=== PATIENT | female | born 1945 ===

== ENCOUNTER 2025-04-23 04:20 | Observation (INO) | payer MEDICARE, BC, SELFPAY ==
[2025-04-22 20:51] VITALS: BMI 36.8
[2025-04-22 20:53] VITALS: BP 152/73
--- NOTE | 2025-04-22 23:19 | ED.GENMED ---
History of Present Illness
<Connor Maza Jr., PA-C - Last Filed: 04/23/25 16:58>
General
Chief Complaint: Musculo-Skeletal Complaint
Source: patient
Exam Limitations: none
Time Seen by Provider: 04/22/25 21:36
Nursing documentation reviewed up to this point in time: agreed with
History of Present Illness
History of Present Illness:
79-year-old female presenting to the emergency department today with concerns of abrupt onset of left hip pain while walking pain specifically to the hip unable to walk since. No injury or specific trauma to the area no falls. Denies any redness
or warmth. Otherwise felt well immediately prior to this. Difficulty moving at the hip at this point.
Review of Systems
<Connor Maza Jr., PA-C - Last Filed: 04/23/25 16:58>
Review of Systems
Allergies reviewed?: Yes
All Other Systems: ROS reviewed and negative except as documented in HPI and ROS
Phy Exam
<DARRYL Ferrera Jr. Last Filed: 04/23/25 16:58>
Physical Exam
Physical Exam:
GENERAL: Alert , in no apparent distress
EYE: pupils equal and reactive
NECK: Supple, no significant adenopathy.
ENT: o/p clr, mmm.
CARDIAC: Regular rate and rhythm .
LUNGS: Clear breath sounds bilaterally, no acute respiratory distress, no wheezes/rales/rhonchi
ABDOMEN: Soft, without focal tenderness, no r/g, no cvat
NEUROLOGICAL: Alert and oriented, no focal neuro deficits
SKIN: Warm and dry, skin intact.
MUSCULOSKELETAL: Increased comfort of left hip with any movement of the hip including straight leg raise, no redness or warmth some mild discomfort when palpating the lateral aspect of the hip no edema, well perfused.
PSYCH: Normal and appropriate interaction.
Course
<Connor Maza Jr., PA-C - Last Filed: 04/23/25 16:58>
Orders/Labs/Results
Orders:
Orders
04/22/25 21:36
Hip, Left 2-3 Views [CR Hip - LT w/wo Pel 2-3 Vw*] Urgent
Comment:
Reason For Exam: left hip pain
Include a pelvis x-ray?: Yes
04/22/25 23:07
CT Pelvis W/o Iv Contrast Urgent
Comment:
Reason For Exam: left hip pain cannot weight bear
Ketorolac [Toradol] 30 mg IM NOW STA
04/23/25 00:41
Acetaminophen 1000MG/100Ml [Ofirmev] 1,000 mg in 100 ml IV ONCE
Acetaminophen IV Indication:: ED Narcotic Naive Pt-ONCE
04/23/25 00:53
Complete Blood Count/No Diff Urgent
Comprehensive Metabolic Panel Urgent
04/23/25 01:45
Oxycodone [Roxicodone] 5 mg PO NOW STA
04/23/25 03:00
Flush (0.9% Sodium Chloride) [Flush (Nss)] See Dose Instructions IV PER PROTOCOL
04/23/25 04:05
Admit/Transfer Patient As Directed
Co-Sign Provider:
Level of Care: Observation services
Assign to:: Medical/Surgical
Physician / Group: [facility]
Diagnosis: Hip Pain, Ambulatory Dysfunction
PRN Pain Medication Management As Directed
May give lesser potent ordered pain med per pt: Yes
preference::
Protocol:: Medication orders for pain may be administered in a
manner that supports deferring to patient preference
when the pt is:
- Requesting an ordered lesser potent pain medication.
Least to most potent pain medications are defined
as: acetaminophen < NSAID < tramadol < opioids
(morphine, oxycodone, hydromorphone).
- Requesting a lesser dose of the same medication IF
ORDERED.
- Requesting a less intrusive route of administration
if both routes are prescribed by the provider (PO <
IV).
04/23/25 04:06
Code Status As Directed
Resuscitation Status: Full Code
04/23/25 05:56
Naproxen [Naprosyn] 250 mg PO BID PRN Mild pain Mild pain
Zolpidem Tartrate [Ambien] 5 mg PO HS PRN insomnia
04/23/25 05:56
Activity As Directed
Activity Level: Ambulate
With Assistance
Heat Application As Directed
Apply heat therapy device to (location):: L hip / buttock
Device Frequency setting:: 20 minute cycles
Device temperature setting:: Moderate: 100 F (38 C)
I/O [Intake/ Output] As Directed
Frequency: Per unit guidelines
Vital Signs As Directed
Frequency: Per unit guidelines
PT Consult [Pt Eval And Treat] Routine
Activity Level: Ambulate
With Assistance
DX Deep Vein Thrombosis Video Routine
04/23/25 Breakfast
Regular
At Your Request: Full Participation
04/23/25 07:04
Basic Metabolic Panel IN AM
Complete Blood Count/No Diff IN AM
04/23/25 08:00
Acetaminophen [Tylenol] 1,000 mg PO TID
Triamterene/Hctz [Dyazide] 1 capsule PO DAILY
04/23/25 18:00
Enoxaparin Sodium [Lovenox] 40 mg SC QPM
Abnormal Lab Results
04/23/25
00:53
MCH 31.3 H pg
(27.0-31.0)
MPV 10.8 H fL
(7.4-10.4)
Chloride 108 H mmol/L
(98-107)
BUN 21 H mg/dl
(7-17)
Glucose 109 H mg/dl
(70-99)
04/23/25 00:53
04/23/25 00:53
Vital Signs
Initial and Last Documented VS:
Initial Vital Signs
Temp Pulse Resp BP Pulse Ox
98.2 F 79 18 152/73 95
04/22/25 20:53 04/22/25 20:53 04/22/25 20:53 04/22/25 20:53 04/22/25 20:53
Last Documented Vital Signs
Temp Pulse Resp BP Pulse Ox
98.4 F 68 16 124/59 95
04/23/25 15:05 04/23/25 15:05 04/23/25 15:05 04/23/25 15:05 04/23/25 15:05
<Thuan Lynne PA-C - Last Filed: 04/23/25 01:58>
Orders/Labs/Results
Orders:
Orders
04/22/25 21:36
Hip, Left 2-3 Views [CR Hip - LT w/wo Pel 2-3 Vw*] Urgent
Comment:
Reason For Exam: left hip pain
Include a pelvis x-ray?: Yes
04/22/25 23:07
CT Pelvis W/o Iv Contrast Urgent
Comment:
Reason For Exam: left hip pain cannot weight bear
Ketorolac [Toradol] 30 mg IM NOW STA
04/23/25 00:41
Acetaminophen 1000MG/100Ml [Ofirmev] 1,000 mg in 100 ml IV ONCE
Acetaminophen IV Indication:: ED Narcotic Naive Pt-ONCE
04/23/25 00:53
Complete Blood Count/No Diff Urgent
Comprehensive Metabolic Panel Urgent
04/23/25 01:45
Oxycodone [Roxicodone] 5 mg PO NOW STA
04/23/25 03:00
Flush (0.9% Sodium Chloride) [Flush (Nss)] See Dose Instructions IV PER PROTOCOL
04/23/25 04:05
Admit/Transfer Patient As Directed
Co-Sign Provider:
Level of Care: Observation services
Assign to:: Medical/Surgical
Physician / Group: [facility]
Diagnosis: Hip Pain, Ambulatory Dysfunction
PRN Pain Medication Management As Directed
May give lesser potent ordered pain med per pt: Yes
preference::
Protocol:: Medication orders for pain may be administered in a
manner that supports deferring to patient preference
when the pt is:
- Requesting an ordered lesser potent pain medication.
Least to most potent pain medications are defined
as: acetaminophen < NSAID < tramadol < opioids
(morphine, oxycodone, hydromorphone).
- Requesting a lesser dose of the same medication IF
ORDERED.
- Requesting a less intrusive route of administration
if both routes are prescribed by the provider (PO <
IV).
04/23/25 04:06
Code Status As Directed
Resuscitation Status: Full Code
04/23/25 05:56
Naproxen [Naprosyn] 250 mg PO BID PRN Mild pain Mild pain
Zolpidem Tartrate [Ambien] 5 mg PO HS PRN insomnia
04/23/25 05:56
Activity As Directed
Activity Level: Ambulate
With Assistance
Heat Application As Directed
Apply heat therapy device to (location):: L hip / buttock
Device Frequency setting:: 20 minute cycles
Device temperature setting:: Moderate: 100 F (38 C)
I/O [Intake/ Output] As Directed
Frequency: Per unit guidelines
Vital Signs As Directed
Frequency: Per unit guidelines
PT Consult [Pt Eval And Treat] Routine
Activity Level: Ambulate
With Assistance
DX Deep Vein Thrombosis Video Routine
04/23/25 Breakfast
Regular
At Your Request: Full Participation
04/23/25 07:04
Basic Metabolic Panel IN AM
Complete Blood Count/No Diff IN AM
04/23/25 08:00
Acetaminophen [Tylenol] 1,000 mg PO TID
Triamterene/Hctz [Dyazide] 1 capsule PO DAILY
04/23/25 18:00
Enoxaparin Sodium [Lovenox] 40 mg SC QPM
Abnormal Lab Results
04/23/25
00:53
MCH 31.3 H pg
(27.0-31.0)
MPV 10.8 H fL
(7.4-10.4)
Chloride 108 H mmol/L
(98-107)
BUN 21 H mg/dl
(7-17)
Glucose 109 H mg/dl
(70-99)
04/23/25 00:53
04/23/25 00:53
Vital Signs
Initial and Last Documented VS:
Initial Vital Signs
Temp Pulse Resp BP Pulse Ox
98.2 F 79 18 152/73 95
04/22/25 20:53 04/22/25 20:53 04/22/25 20:53 04/22/25 20:53 04/22/25 20:53
Last Documented Vital Signs
Temp Pulse Resp BP Pulse Ox
98.4 F 68 16 124/59 95
04/23/25 15:05 04/23/25 15:05 04/23/25 15:05 04/23/25 15:05 04/23/25 15:05
<Connor Maza Jr., PA-C - Last Filed: 04/23/25 16:58>
MDM/Problems Addressed
MDM/Problems Addressed:
79-year-old female presenting to the emergency department today with concerns of a sharp hip pain when walking earlier today. Difficulty walking since at this point unable to weight-bear secondary to pain. No specific trauma to the area. No
redness or warmth no signs of infection normal vital signs. X-ray without obvious fracture or acute abnormalities. Concerning the patient is unable to ambulate plan for CT scan for further assessment.
<Thuan Lynne PA-C - Last Filed: 04/23/25 01:58>
*Critical Care Note
Total Time (30-74mins, 75-104mins- exclusive of procedures): Not Applicable
<Thuan Lynne PA-C - Last Filed: 04/23/25 01:58>
Update Note
Update Note:
Assumed care of patient from Ed DARRYL Maza at shift change 0000. Patient awaiting CT scan for intractable left hip pain after minimal mechanical injury without fall. Initial x-ray was unremarkable. Ultimately CT reveals no acute osseous
abnormality. Patient was given analgesics and was able to bear weight however was unable to ambulate steadily. She does not feel comfortable returning home as per her is not strong enough to assist her with movement. Due to her advanced
age and body habitus will place in observation for PT and OT considerations as well as further pain management
ED Attending Note
<Connor Maza Jr., PA-C - Last Filed: 04/23/25 16:58>
-
Portions of this chart may have been created with voice recognition software.� Occasional wrong word or��sound alike� substitutions may have occurred due to the inherent limitations of voice recognition software.
Discharge Plan
Departure
Patient Disposition: Admit
Date of Disposition: 04/23/25
Time of Disposition: 01:56
Presentation/result/management discussed w/ accepting MD/DO: Hospitalist
Discharge Problem:
Acute pain of left hip, Ambulatory dysfunction
Interventions
Interventions:
*Risk Screen - Suicide Last Done: 04/23/25 06:04
*General Assessment Last Done: 04/22/25 21:12
*Neglect/Abuse Screening Last Done: 04/22/25 21:12
*ED- Fall Risk Assessment Last Done: 04/22/25 21:12
*ED COVID-19 Vaccine History Last Done: 04/23/25 06:04
*Nursing Disposition Last Done: 04/23/25 06:17
ED-Musculoskeletal Assessment Last Done: 04/22/25 21:12
Discharge Date and Time
Discharge Date/Time: 04/23/25 06:18
[2025-04-22] MEDS: TORADOL 30 MG IM (23:20)
[2025-04-22 23:55] VITALS: BP 128/74
[2025-04-23] VITALS (7 sets, daily range): BP systolic 124–170; BP diastolic 59–79; PULSE 64–67; O2SAT 94; BMI 35.2
[2025-04-23] MEDS: OFIRMEV 100 IV (00:51)
[2025-04-23 01:16] LABS: Hematocrit 40.3 % (37.0-47.0); Mean Corp Hgb Conc. 34.7 g/dL (33.0-37.0); Mean Corpuscular Hgb 31.3 pg (27.0-31.0); Mean Corpuscular Volume 90.2 fL (81.0-99.0); Mean Platelet Volume 10.8 fL (7.4-10.4); Platelet Count 187 10^3/uL (130-400); Red Blood Cell Count 4.47 10^6/uL (4.20-5.40); White Blood Cell Count 9.2 10^3/uL (4.8-10.8)
[2025-04-23 01:28] LABS: ALT (SGPT) 27 U/L (0-35); AST (SGOT) 23 U/L (14-36); Albumin 4.7 g/dl (3.5-5.0); Alkaline Phosphatase 73 U/L (38-126); Blood Urea Nitrogen 21 mg/dl (7-17); Calcium 9.9 mg/dl (8.4-10.2); Carbon Dioxide 28 mmol/L (22-30); Chloride 108 mmol/L (98-107); Estimated Creatinine Clearance 80 ml/min; Glucose 109 mg/dl (70-99); Potassium 4.2 mmol/L (3.5-5.1); Sodium 144 mmol/L (135-145); Total Bilirubin 0.7 mg/dl (0.2-1.3); Total Protein 7.1 g/dl (6.3-8.2); eGFR > 60.00
[2025-04-23] MEDS: ROXICODONE 5 MG PO (02:17)
--- NOTE | 2025-04-23 04:07 | HPS.HSE ---
Family Physician
-
Family Physician: Elvin Huizar MD
Chief Complaint
-
L Hip Pain
History of Present Illness
Patient is an 79y F with PMH significant for DJD who presents to ED complaining of L hip / buttock pain. Patient states that she was feeling well prior to dinner this evening. She stood from dinner and started to walk when she developed sudden,
sharp, stabbing pain in the L lateral buttock / 'hip ' area. Patient states that she was unable to move her leg due to the pain. Her was able to help her to the car. Once seated, she felt much improved. When they arrived home however,
she was unable to stand / ambulate without significant pain and so presented to the ED for further evaluation.
Patient denies any recent fall, injury, trauma, etc. She has chronic joint pain / arthritis and takes naproxen BID and Tylenol as needed.
Imaging in the ED was unremarkable; however, patient remains unable to stand / ambulate.
Patient states that she had prior symptoms of sciatica - L hip / buttock pain radiating down into the LLE - about 6 weeks ago.
These symptoms gradually improved and she actually was feeling very well of late.
Medical History
Past Medical History
Past Medical History: Reports Other
Additional Past Medical History:
DJD
Meniere's Disease
PVCs
Past Surgical History: Reports Other
Additional Past Surgical History:
Left TKA
Ear Surgery
Social History
Tobacco: Former Smoker (Quit smoking 30 years ago.)
Alcohol: Occasional
Drug: None
Family History
Family History: Not pertinent
Allergies / Home Medications
Allergies reflects when Allergies were last updated in [facility].
Home Medications with original date entered in [facility]
Allergy/Medication List:
Allergies
Allergy/AdvReac Type Severity Reaction Status Date / Time
clarithromycin (From Biaxin) Allergy Unknown Verified 04/23/25 02:22
erythromycin base Allergy DIARHEA Verified 04/23/25 02:22
moxifloxacin (From Avelox) Allergy DIZZINESS Verified 04/23/25 02:22
Penicillins Allergy Hives Verified 04/23/25 02:22
Home Medications
acetaminophen 325 mg tablet (Tylenol) 650 mg PO Q6H PRN Pain 04/23/25
naproxen sodium 220 mg tablet 220 mg PO BID 04/23/25
triamterene 37.5 mg-hydrochlorothiazide 25 mg capsule 1 cap PO DAILY 04/23/25
zolpidem 5 mg tablet 5 mg PO HS PRN insomnia 04/23/25
Review of Systems
-
History Source: Patient
A 12 point ROS was completed and negative except as noted: Yes
Constitutional: Denies Fever or Chills
Respiratory: Denies Cough or Trouble Breathing
Cardiac: Denies Chest Pain or Palpitations
Abdomen/GI: Denies Abdominal Pain, Nausea, Vomiting or Diarrhea
: Denies Dysuria or Frequency
Musculoskeletal: Reports Joint Pain; Denies Edema
Neurological: Denies Dizzy or Headache
Physical Exam
Vital Signs
Vital Signs
Temp Pulse Resp BP Pulse Ox
97.8 F 78 16 135/79 98
04/23/25 02:32 04/23/25 02:32 04/23/25 02:32 04/23/25 02:32 04/23/25 02:32
Physical Exam
General: Other (79y F in no acute distress.)
HEENT: Moist mucous membranes
Respiratory: Clear; No Wheezes, Rales or Rhonchi
Cardiac: S1/S2 and Regular Rhythm; No Murmur
GI: Soft, Non Tender, Non Distended and Normal Bowel Sounds
Musculoskeletal: No Clubbing, No Cyanosis, No Edema and Other (Tenderness over the L SI joint and L piriformis areas. Pos SLR on the L at < 20 degrees.)
Neuro: AO x 3 and Nonfocal/grossly intact
Laboratory Results
-
04/23/25 00:53
04/23/25 00:53
Laboratory Results
Total Bilirubin 0.7 mg/dl (0.2-1.3) 04/23/25 00:53
AST 23 U/L (14-36) 04/23/25 00:53
ALT 27 U/L (0-35) 04/23/25 00:53
Alkaline Phosphatase 73 U/L (38-126) 04/23/25 00:53
Impression/Plan
-
A/P: Patient is an 79y F with PMH significant for DJD who presents to ED complaining of L hip / buttock pain.
Left Low Back / Buttock Pain
Ambulatory Dysfunction secondary to the above
DJD
- Observe overnight for further evaluation and treatment.
- X-ray / CT done in the ED with no evidence of fracture / dislocation / etc.
- There was no antecedent trauma, injury, etc.
- Supportive care, pain control, heat application, etc.
- PT eval in the AM.
- Further outpatient v inpatient PT depending on progress.
Meniere's Disease
- Stable. Continue Dyazide.
DVT Prophylaxis: Lovenox
Code Status: Full
[2025-04-23] MEDS: TYLENOL 1000 MG PO ×3 (07:36→21:13)
[2025-04-23] MEDS: DYAZIDE 1 CAPSULE PO (07:36)
[2025-04-23 08:02] LABS: Hematocrit 38.7 % (37.0-47.0); Hemoglobin 13.1 g/dL (12.0-16.0); Mean Corp Hgb Conc. 33.9 g/dL (33.0-37.0); Mean Corpuscular Volume 91.7 fL (81.0-99.0); Platelet Count 164 10^3/uL (130-400); Red Blood Cell Count 4.22 10^6/uL (4.20-5.40); Red Cell Dist. Width 12.1 % (11.5-14.5); White Blood Cell Count 7.7 10^3/uL (4.8-10.8)
[2025-04-23 08:16] LABS: Blood Urea Nitrogen 21 mg/dl (7-17); Calcium 9.6 mg/dl (8.4-10.2); Carbon Dioxide 29 mmol/L (22-30); Chloride 108 mmol/L (98-107); Estimated Creatinine Clearance 78 ml/min; Glucose 113 mg/dl (70-99); Potassium 4.1 mmol/L (3.5-5.1); Sodium 140 mmol/L (135-145); eGFR > 60.00
--- NOTE | 2025-04-23 11:37 | W.PN.HOSP.TC ---
Today's Communication/Plan
-
Occ therapy consult.
Assessment / Plan
Assessment / Plan
A/P: Patient is an 79y F with PMH significant for DJD who presented to ED complaining of L hip / buttock pain. CT showed the following:
1. Large left greater trochanteric enthesophyte suggesting CHRONIC ENTHESOPATHY of the LEFT GLUTEUS MINIMUS and MEDIUS TENDON ATTACHMENTS. 1.4 cm chronic avulsion fracture of the lateral left greater trochanter.
2. Mild left greater trochanteric bursitis with mild surrounding soft tissue edema.
3. Mild bilateral osteoarthritis of the hips.
4. Severe right-sided facet joint arthrosis at L5/S1.
1. Left Low Back / Buttock Pain with Ambulatory Dysfunction secondary to the above and DJD
- Continue to Observe overnight for further evaluation and treatment.
- X-ray / CT done in the ED with no evidence of acute fracture / dislocation / etc. but has old avulsion
- There was no antecedent trauma, injury, etc.
- Supportive care, pain control, heat application, etc.
- PT eval and occ therapy eval
- Further outpatient v inpatient PT depending on progress.
Meniere's Disease
- Stable. Continue Dyazide.
DVT Prophylaxis: Lovenox
Code Status: Full
Anticipated Discharge: Within 24 hours
Subjective/Interval History
-
Date of Service: April 23, 2025
moderately improved today
Objective Data
-
Labs:
Laboratory Results
04/23/25 04/23/25
00:53 07:04
WBC 9.2 7.7
Hgb 14.0 13.1
Hct 40.3 38.7
Plt Count 187 164
Sodium 144 140
Potassium 4.2 4.1
Chloride 108 H 108 H
Carbon Dioxide 28 29
BUN 21 H 21 H
Creatinine 0.6 0.6
Glucose 109 H 113 H
Calcium 9.9 9.6
Total Bilirubin 0.7
AST 23
ALT 27
Alkaline Phosphatase 73
Vital Signs:
Vital Signs
Temp Pulse Resp BP Pulse Ox
97.4 F 68 14 146/64 94
04/23/25 07:10 04/23/25 07:36 04/23/25 07:10 04/23/25 07:36 04/23/25 07:10
Review of Systems
-
History Source: Patient
All other systems: Reviewed and negative
Physical Exam
-
General: Well Developed, Well Nourished, No Apparent Distress and Obese
HEENT: Normocephalic, Nose Appears Normal and Ears Appear Normal
Respiratory: Clear to Auscultation
Cardiac: Regular Rhythm and S1/S2
GI: Soft, Nontender and Nondistended
Musculoskeletal: No Clubbing, No Cyanosis and No Edema
Skin: Warm and Dry
Neuro: Awake, Alert and Oriented
Psych: Calm
Data Reviewed
-
Labs: Labs Reviewed by me
[2025-04-23] MEDS: NAPROSYN 250 MG PO (13:19)
[2025-04-23] MEDS: LOVENOX 40 MG SC (17:16)
[2025-04-23] MEDS: AMBIEN 5 MG PO (21:14)
--- NOTE | 2025-04-24 05:54 | PTCARENOTE ---
Pt awake intermittently t/o the night. Pt able to ambulate with standby assist with walker to bathroom. Pt reports pain much improved. Pt anxious to go home today. Pt annoyed that she is not able to ambulate independently on her own. Fall risk
teaching provided. No other changes in assessment noted at this time. Will continue to monitor.
[2025-04-24 07:30] VITALS: BP 136/74
[2025-04-24] MEDS: DYAZIDE 1 CAPSULE PO (08:06)
[2025-04-24] MEDS: TYLENOL 1000 MG PO (08:06)
[2025-04-24 08:13] LABS: Hematocrit 42.2 % (37.0-47.0); Hemoglobin 14.2 g/dL (12.0-16.0); Mean Corp Hgb Conc. 33.6 g/dL (33.0-37.0); Mean Corpuscular Hgb 30.9 pg (27.0-31.0); Mean Corpuscular Volume 91.7 fL (81.0-99.0); Mean Platelet Volume 10.9 fL (7.4-10.4); Platelet Count 173 10^3/uL (130-400)
[2025-04-24 08:59] LABS: Blood Urea Nitrogen 15 mg/dl (7-17); Calcium 9.9 mg/dl (8.4-10.2); Carbon Dioxide 25 mmol/L (22-30); Chloride 106 mmol/L (98-107); Estimated Creatinine Clearance 78 ml/min; Glucose 170 mg/dl (70-99); Potassium 4.3 mmol/L (3.5-5.1); Sodium 141 mmol/L (135-145); eGFR > 60.00
--- NOTE | 2025-04-24 11:10 | W.PN.HOSP.TC ---
Today's Communication/Plan
-
dc to home/VN
OP ortho f/u
Assessment / Plan
Assessment / Plan
Assessment:
L hip/buttock pain
- CT: large left greater trochanteric enthesophyte suggesting CHRONIC ENTHESOPATHY of the LEFT GLUTEUS MINIMUS and MEDIUS TENDON ATTACHMENTS. 1.4 cm chronic avulsion fracture of the lateral left greater trochanter. Mild left greater trochanteric
bursitis with mild surrounding soft tissue edema.
- setup home VN
- pain control
- OP Orthopedics f/u
Meniere's Disease
- Stable. Continue Dyazide.
DVT Prophylaxis: Lovenox
Code Status: Full
More than 30 minutes spent in discharge including
Final examination of the patient
Summarizing hospital stay
Instructions for continuing care to all relevant caregivers
Preparation of discharge records, prescriptions, and referral forms
Total time spent (in minutes): 41
Anticipated Discharge: Today
Subjective/Interval History
-
Date of Service: April 24, 2025
reports pain controlled
denies any complaints
ambulating well with walker
Objective Data
-
Labs:
Laboratory Results
04/24/25
07:36
WBC 7.0
Hgb 14.2
Hct 42.2
Plt Count 173
Sodium 141
Potassium 4.3
Chloride 106
Carbon Dioxide 25
BUN 15
Creatinine 0.6
Glucose 170 H
Calcium 9.9
Vital Signs:
Vital Signs
Temp Pulse Resp BP Pulse Ox
98.1 F 78 18 136/74 95
04/24/25 07:30 04/24/25 07:30 04/24/25 07:30 04/24/25 07:30 04/24/25 07:30
I&O
04/23/25 04/24/25 04/25/25
06:59 06:59 06:59
Intake Total 720 / 720
Balance 720 / 720
Physical Exam
-
General: No Apparent Distress
HEENT: Normocephalic and Atraumatic
Respiratory: Negative Wheezes
Cardiac: Regular Rhythm and S1/S2
GI: Soft and Nontender
Musculoskeletal: No Edema
Neuro: AO x 3
Psych: Calm
Data Reviewed
-
Total Time Spent with Patient (in minutes): 42
Labs: Labs Reviewed by me
--- NOTE | 2025-04-24 11:16 | W.DS.TRANS ---
DC Summary - Power Station Operator
-
Discharge Instructions:
Discharge Diagnosis/Procedures L hip pain from CHRONIC ENTHESOPATHY of the LEFT
GLUTEUS MINIMUS and MEDIUS TENDON ATTACHMENTS.
1.4 cm chronic avulsion fracture of the lateral
left greater trochanter.
Diet Regular
Activity As tolerated
Other Services VN,PT,OT
Instructions:
Stand-Alone Forms:
Changes to Home Medications: No
Discharge Medications:
DC Medications w/original date entered in [facility] [employer]
acetaminophen 325 mg tablet (Tylenol) 650 mg PO Q6H PRN Pain 04/23/25
naproxen sodium 220 mg tablet 220 mg PO BID Anti-Inflammatory 04/23/25
triamterene 37.5 mg-hydrochlorothiazide 25 mg capsule 1 cap PO DAILY Blood Pressure 04/23/25
zolpidem 5 mg tablet 5 mg PO HS PRN insomnia 04/23/25
hydrocodone 5 mg-acetaminophen 325 mg tablet 1 tab PO Q12H PRN hip pain #20 tabs 04/24/25
Home Medication Changes
Pending Results: No
Total time spent discharging patient (in min): 41
[2025-04-24 12:00] VITALS: BP 118/68
--- NOTE | 2025-04-24 12:09 | CM ---
Alert awake oriented who lives with Connor at independent living [facility]> She drives and is independent in all ADLs. She has no DME but walker script written by MD . PT notified . PT will issue walker before dc. will drive her
home.[place] letter reviewed all questions answered. TRISHA signed on chart.Offered VN she declined she said she will see her Orthopedist first
No VN /SNF hx.
Pharmacy [facility] or [facility].
PCP Dr Huizar
[facility] Home no needs
== END 2025-04-24 12:56 | disposition home or self-care (01) ==
LOC: 4 EAST ACU 04:20
PROVIDERS: Internal Medicine; Physician Assistant; ADMITTING PHYSICIAN Hospitalist; ATTENDING PHYSICIAN Internal Medicine; EMERGENCY PHYSICIAN Emergency Medicine; FAMILY PHYSICIAN Student in an Organized Health Care Education/Training Program
DX: M16.0 Bilateral primary osteoarthritis of hip (principal); M25.552 Pain in left hip; G89.29 Other chronic pain; M70.62 Trochanteric bursitis, left hip; M47.817 Spondylosis without myelopathy or radiculopathy, lumbosacral region; H81.09 Meniere's disease, unspecified ear; Z79.899 Other long term (current) drug therapy; Z87.891 Personal history of nicotine dependence
CPT/HCPCS: 72192; 73502; 80048; 80053; 85027; 96372; 96374; 97116; 97163; 97167; 99285; G0378

== ENCOUNTER → 2025-06-01 11:41 | Outpatient (REF) | payer MEDICARE, BC, SELFPAY | LOC: RCS 11:41 | PROVIDERS: ATTENDING PHYSICIAN Student in an Organized Health Care Education/Training Program; REFERRING PHYSICIAN Internal Medicine | DX: I49.3 Ventricular premature depolarization (principal); I35.1 Nonrheumatic aortic (valve) insufficiency; I10 Essential (primary) hypertension; I51.7 Cardiomegaly; R06.09 Other forms of dyspnea; R60.0 Localized edema | CPT/HCPCS: 78452; 93017; A9500; J2785 ==

== ENCOUNTER → 2025-09-25 13:39 | Outpatient (REF) | payer MEDICARE, BC, SELFPAY | LOC: HWRCS 13:39 | PROVIDERS: ATTENDING PHYSICIAN Internal Medicine; FAMILY PHYSICIAN Student in an Organized Health Care Education/Training Program | DX: I11.9 Hypertensive heart disease without heart failure (principal); I49.3 Ventricular premature depolarization; I45.10 Unspecified right bundle-branch block | CPT/HCPCS: 93306 ==

== ENCOUNTER 2025-10-29 17:57 | Inpatient (IN) | payer MEDICARE, BC, SELFPAY ==
[2025-10-29 13:44] VITALS: BP 155/72
[2025-10-29] MEDS: DUONEB 3 ML INH ×3 (15:08→20:12)
[2025-10-29] MEDS: DECADRON 10 MG IV (16:39)
--- NOTE | 2025-10-29 16:44 | ED.GENMED ---
History of Present Illness
General
Chief Complaint: Cold/Flu/URI Symptoms
Source: patient
Time Seen by Provider: 10/29/25 14:21
History of Present Illness
History of Present Illness:
Note:
CHIEF COMPLAINT(S)
Worsening wheezing and upper respiratory symptoms.
HISTORY OF PRESENT ILLNESS
The patient is an 80-year-old female who presented with worsening symptoms of an upper respiratory infection initially assessed by her primary care physician. She reports being diagnosed with an upper respiratory infection on Thursday and was
instructed to take antibiotics only if her temperature kandy or she developed colored mucus. As of this morning, symptoms have intensified, particularly wheezing in the upper chest, leading to fatigue. The symptoms began approximately one week ago,
possibly around Thursday. No current history of asthma, emphysema, or chronic obstructive pulmonary disease. The patient recalls experiencing bronchitis a few times and has been prescribed albuterol inhalers, but the current use of albuterol does not
seem effective. The patient denies fever or hemoptysis. COVID-19 and influenza tests have returned negative.
PAST MEDICAL AND SURGICAL HISTORY
Notable for occasional episodes of bronchitis, otherwise unremarkable, with no history of diabetes, hypertension, or major chronic conditions.
ALLERGIES
Penicillins, which cause ocular symptoms.
SOCIAL HISTORY
Patient and spouse have been taking Vitamin D with K2 and Airborne supplements, which may include zinc.
MEDICATIONS
Albuterol inhaler and previously one dose of Cipro.
REVIEW OF SYSTEMS
- Respiratory: Worsening wheezing, initiated approximately one week ago, especially in the upper chest; no hemoptysis reported.
PHYSICAL EXAM
General: Alert, no acute distress.
Skin: Warm, dry.
Head: Normocephalic, atraumatic.
Neck: Supple, trachea midline.
Eye Ears, Nose, Mouth & Throat: Oral mucosa moist.
Cardiovascular: Normal peripheral perfusion, no edema.
Respiratory: Wheezing and rales scattered bilaterally; no stridor; no edema noted in lower extremities, no jugular venous distention.
Gastrointestinal: Abdomen nondistended.
Back: Normal range of motion, normal alignment.
Musculoskeletal: Normal range of motion, normal strength.
Neurological: Alert and oriented to person, place, time, and situation; no focal neurological deficit observed.
Psychiatric: Cooperative, appropriate mood & affect.
PROBLEM LIST
Acute:
- Upper respiratory infection with worsening wheezing
- Reactive airway disease possibly due to bronchitis
PLAN
- Administer [id number] breathing treatments.
- Obtain chest X-ray to evaluate for possible pneumonia.
- Initiate corticosteroid treatment due to significant airway inflammation.
- Monitor and follow up post-treatments and X-ray results.
DIFFERENTIAL DIAGNOSIS
The Differential Diagnosis includes, in no particular order and is not limited to:
1. Bronchitis
2. Upper respiratory tract infection
3. Pneumonia
4. Asthma
5. Chronic obstructive pulmonary disease exacerbation
6. Influenza
7. COVID-19 (though tested negative)
8. Pulmonary embolism
9. Heart failure
10. Allergic reaction
Disposition:
SUMMARY OF ENCOUNTER
The 80-year-old female patient presented with a persistent cough, shortness of breath, and wheezing. Upon examination, she was found to be slightly hypoxic with an oxygen saturation of 93%. Auscultation revealed wheezing and bronchial breath sounds
bilaterally. A chest X-ray showed right middle lobe pneumonia. Given her age and hypoxia, along with persistent shortness of breath, steroids and intravenous antibiotics were administered. She was admitted for close monitoring. The patient responded
well to bronchodilators, requiring continued close observation.
DISPOSITION
Admit
ASSESSMENT
Right middle lobe pneumonia; hypoxia; wheezing with potential reactive airway involvement.
EMERGENCY TREATMENTS ADMINISTERED
Bronchodilators, steroids, and intravenous antibiotics.
PLAN
Admission for close monitoring, continuation of bronchodilator treatment, and administration of IV antibiotics. Monitor respiratory status and oxygen levels closely.
INDEPENDENT REVIEW OF LABS AND INTERPRETATION OF TESTS
- My independent interpretation of the chest X-ray shows right middle lobe pneumonia.
PATIENT EDUCATION AND COUNSELING
The patient was informed about the diagnosis of pneumonia and the plan for hospitalization to ensure close monitoring and treatment.
MEDICATION RECONCILIATION
- Bronchodilators administered.
- Prescribed steroids and IV antibiotics.
MEDICAL DECISION MAKING
- Number and Complexity of Problems Addressed: Chronic conditions affecting care include the history of bronchitis. Differential diagnosis considered included pneumonia, reactive airway disease, potential asthma, and upper respiratory infection.
- Data:
- Category 1:
- Reviewed chest X-ray indicating right middle lobe pneumonia.
- Blood work (CBC and BMP) is pending.
- Category 3: The management plan involved the discussion of the patients status with admitting services for further monitoring and care.
-Risk:
Admission was deemed necessary given the complexity and risk associated with her age, hypoxia, and the diagnosis of pneumonia, necessitating close inpatient monitoring and treatment.
DIAGNOSIS
J18.9 Pneumonia, unspecified organism
Phy Exam
Physical Exam
Physical Exam:
.
Course
Orders/Labs/Results
Orders:
Orders
10/29/25 15:02
Ipratropium/Albuterol Sulfate [Duoneb] 3 ml INH R NOW ONE
Ipratropium/Albuterol Sulfate [Duoneb] 3 ml INH R NOW STA
CR Chest - 2 Views Urgent
Comment:
Reason For Exam: cough
10/29/25 15:59
Prednisone [Deltasone] 50 mg PO NOW STA
10/29/25 16:27
Dexamethasone Sod Phosphate [Decadron] 10 mg IV NOW STA
10/29/25 16:37
Complete Blood Count/With Diff Urgent
Comprehensive Metabolic Panel Urgent
Lactic Acid Q4H
Comment: CANCEL 2nd LACTIC ACID IF 1st LACTIC ACID IS LESS THAN 2
10/29/25 16:38
Blood Culture Q30M
SHANNA Source: Blood/Venous
Specimen Description:
Blood Culture Q30M
SHANNA Source: Blood/Venous
Specimen Description:
10/29/25 16:47
CefTRIAXone [Rocephin] 2,000 mg IV NOW STA
Doxycycline [Vibramycin] 100 mg PO NOW STA
10/29/25 20:30
Lactic Acid Q4H
Comment: CANCEL 2nd LACTIC ACID IF 1st LACTIC ACID IS LESS THAN 2
Vital Signs
Initial and Last Documented VS:
Initial Vital Signs
Temp Pulse Resp BP Pulse Ox
98.2 F 88 18 155/72 94
10/29/25 13:44 10/29/25 13:44 10/29/25 13:44 10/29/25 13:44 10/29/25 13:44
Last Documented Vital Signs
Temp Pulse Resp BP Pulse Ox
98.2 F 88 18 155/72 94
10/29/25 13:44 10/29/25 13:44 10/29/25 13:44 10/29/25 13:44 10/29/25 16:46
*Pulse Oximetry
SaO2: 93
Oxygen Mode of Delivery: Room air
Patient hypoxic: yes
*Information Management Manager Interpretation
Rate: tachycardiac
Interpretation: normal
Rhythm: sinus
*Critical Care Note
Total Time (30-74mins, 75-104mins- exclusive of procedures): Not Applicable
ED Attending Note
-
Portions of this chart may have been created with voice recognition software.� Occasional wrong word or��sound alike� substitutions may have occurred due to the inherent limitations of voice recognition software.
Discharge Plan
Departure
Patient Disposition: Admit
Date of Disposition: 10/29/25
Time of Disposition: 16:49
Admit to: Telemetry
Presentation/result/management discussed w/ accepting MD/DO: Hospitalist
Discharge Problem:
Pneumonia, Hypoxia, Reactive airway disease
Prescriptions:
No Action
acetaminophen [Tylenol] 325 mg Tablet
650 mg PO Q6H PRN (Reason: Pain)
triamterene-hydrochlorothiazid 37.5-25 mg Capsule
1 cap PO DAILY
naproxen sodium 220 mg Tablet
220 mg PO BID
zolpidem 5 mg Tablet
5 mg PO HS PRN (Reason: insomnia)
hydrocodone-acetaminophen 5-325 mg tablet
1 tab PO Q12H PRN (Reason: hip pain) Qty: 20 0RF
Referrals:
Elvin Huizar MD [Family Provider, Internal Medicine]
Interventions
Interventions:
*Risk Screen - Suicide Last Done: 10/29/25 13:45
*General Assessment Last Done: 10/29/25 13:45
*Neglect/Abuse Screening Last Done: 10/29/25 13:45
*ED COVID-19 Vaccine History Last Done: 10/29/25 13:45
*ED Influenza Vaccine History Last Done: 10/29/25 13:45
[facility] Fall Risk Assessment Tool Last Done: 10/29/25 15:20
ED- Pulmonary Assessment Last Done: 10/29/25 15:00
Discharge Date and Time
Print Language: TONGAN
[2025-10-29 16:52] LABS: Hematocrit 39.4 % (37.0-47.0); Hemoglobin 13.2 g/dL (12.0-16.0); Mean Corp Hgb Conc. 33.5 g/dL (33.0-37.0); Mean Corpuscular Volume 91.6 fL (81.0-99.0); Nucleated Red Blood Cells % 0 %; Platelet Count 147 10^3/uL (130-400); Red Cell Dist. Width 11.7 % (11.5-14.5)
--- NOTE | 2025-10-29 16:57 | HPS.HSE ---
Family Physician
-
Family Physician: Elvin Huizar MD
Chief Complaint
-
wheezing in the upper chest, leading to fatigue.
History of Present Illness
80F
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
- sent in by PCP for worsening URTI symptoms
- being diagnosed URTI on Thursday and was instructed to take antibiotics only if her temperature kandy or she developed colored mucus.
- this morning, noted onset of wheezing in the upper chest, leading to fatigue.
- symptoms began approximately one week ago, possibly around Thursday.
- current MDI albuterol does not seem effective.
- NEG COVID-19 & influenza
No HX asthma, emphysema, or COPD
- denies fever or hemoptysis.
Medical History
Past Medical History
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
Past Surgical History: Reports None
Social History
Tobacco: Non-smoker
Alcohol: None
Family History
Family History: Not pertinent
Allergies / Home Medications
Allergies reflects when Allergies were last updated in [employer]
Home Medications with original date entered in [employer]
Allergy/Medication List:
Allergies
Allergy/AdvReac Type Severity Reaction Status Date / Time
clarithromycin (From Biaxin) Allergy Unknown Verified 10/29/25 13:45
erythromycin base Allergy DIARHEA Verified 10/29/25 13:45
moxifloxacin (From Avelox) Allergy DIZZINESS Verified 10/29/25 13:45
Penicillins Allergy Hives Verified 10/29/25 13:45
Home Medications
triamterene 37.5 mg-hydrochlorothiazide 25 mg capsule 1 cap PO DAILY Blood Pressure 04/23/25
zolpidem 5 mg tablet 2.5 mg PO HS Sleep 04/23/25
cholecalciferol (vitamin D3) 25 mcg (1,000 unit) tablet (Vitamin D3) 25 mcg PO DAILY Supplement 10/29/25
ciprofloxacin HCl 500 mg tablet 500 mg PO BID Infection 10/29/25
diphenhydramine 25 mg-acetaminophen 500 mg tablet (Acetaminophen PM) 1 tab PO HS Sleep 10/29/25
gabapentin 100 mg capsule 100 mg PO HS Neurological Condition 10/29/25
Review of Systems
-
Constitutional: Reports No Symptoms
EENT: Reports No Symptoms
Respiratory: Reports See HPI
Cardiac: Reports No Symptoms
Abdomen/GI: Reports No Symptoms
: Reports No Symptoms
Musculoskeletal: Reports No Symptoms
Skin: Reports No Symptoms
Neurological: Reports No Symptoms
Endocrine: Reports No Symptoms
Hematologic/Lymphatic: Reports No Symptoms
Psych: Reports No Symptoms
Physical Exam
Vital Signs
Vital Signs
Temp Pulse Resp BP Pulse Ox
98.2 F 88 18 155/72 93
10/29/25 13:44 10/29/25 13:44 10/29/25 13:44 10/29/25 13:44 10/29/25 16:49
Physical Exam
General: Well Developed, Well Nourished and No Apparent Distress
HEENT: NormoCephalic, Moist mucous membranes and Atraumatic
Respiratory: Wheezes (bilateral ) and Rales (bilateral )
Cardiac: S1/S2 and Regular Rhythm; No Murmur or Rub
GI: Soft, Non Tender, Non Distended and Normal Bowel Sounds; No Organomegaly
Rectal: Deferred by Provider
Musculoskeletal: No Clubbing, No Cyanosis and No Edema
Skin: No Rash
Neuro: Nonfocal/grossly intact
Laboratory Results
-
10/29/25 16:37
Data Reviewed
-
Diagnostic Radiology: Other (pending CXR )
Lab Data: Labs Reviewed by me
Old Records: Reviewed
Impression/Plan
-
Vital Signs
Temp Pulse Resp BP Pulse Ox
98.2 F 88 18 155/72 93
10/29/25 13:44 10/29/25 13:44 10/29/25 13:44 10/29/25 13:44 10/29/25 16:49
10/29/25
13:44 10/29/25
15:00
Temp 98.2 F
SaO2 94 94
Oxygen Mode of Delivery Room air Room air
10/29/25
16:37
WBC 11.1 H
Sodium 137
Potassium 3.6
Creatinine 0.6
eGFR > 60.00
10/29/25 10/29/25
16:37 20:30
Lactic Acid 3.2 H Pending
Pending CXR
09/25/25 TAY
1. Normal biventricular size and systolic function without regional wall motion abnormality. LVEF 62%.
2. Mild concentric LVH.
3. No significant valvular disease.
4. No change compared to prior echocardiogram in 2021.
Last hospitalist admission: 04/23/2025 - 04/24/2025
1. 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
2. Meniere disease on Dyazide.
ASSESSMENT & PLAN
R PNA presumed CAP following post viral URTI
Marginal Hypoxic RI
Associated asthmatic bronchitis with bronchospasm
POS LA but unclear etiolgy
- No other evidence of SIRS
- BCx sent
- Empiric IV CFTZ plus PO Doxy
- IV Decadron 2 mg q12h
- DuoNeb qid and PRN
- IV NS and trend LA
- Trend WCC
- Tylenol PRN for T > 101
CP resolved
- check TPNI and EKG - hospitalist ordered
M�ni�re's Disease
- Stable. Continue Dyazide.
DVT Prophylaxis: Lovenox
Full code
IP MS
[2025-10-29 17:04] LABS: ALT (SGPT) 28 U/L (0-35); AST (SGOT) 25 U/L (14-36); Albumin 4.8 g/dl (3.5-5.0); Alkaline Phosphatase 58 U/L (38-126); Blood Urea Nitrogen 8 mg/dl (7-17); Calcium 9.5 mg/dl (8.4-10.2); Carbon Dioxide 27 mmol/L (22-30); Chloride 99 mmol/L (98-107); Glucose 156 mg/dl (70-99); Potassium 3.6 mmol/L (3.5-5.1); Sodium 137 mmol/L (135-145); Total Protein 7.3 g/dl (6.3-8.2); eGFR > 60.00
[2025-10-29] MEDS: ROCEPHIN 2000 MG IV (17:27)
[2025-10-29] MEDS: VIBRAMYCIN 100 MG PO ×2 (17:27→23:05)
[2025-10-29 18:00] VITALS: BP 152/82
[2025-10-29 18:06] LABS: Troponin I < 0.012 ng/ml
[2025-10-29 20:03] VITALS: BP 136/55
[2025-10-29 22:38] VITALS: BMI 35.4
[2025-10-29] MEDS: AMBIEN 2.5 MG PO (23:04)
[2025-10-29] MEDS: NSS 1000 IV (23:05)
[2025-10-29] MEDS: MUCINEX 600 MG PO (23:05)
[2025-10-29] MEDS: DECADRON 2 MG IV (23:05)
[2025-10-29] MEDS: LOVENOX 40 MG SC (23:05)
[2025-10-29] MEDS: NEURONTIN 100 MG PO (23:05)
[2025-10-29 23:24] VITALS: BP 135/63; BMI 35.3
[2025-10-29] MEDS: DUONEB INH (23:55)
[2025-10-30] MEDS: TYLENOL 650 MG PO ×2 (00:02→10:03)
--- NOTE | 2025-10-30 00:10 | PTCARENOTE ---
Pt arrived from ED to [address] [place] [address] [phone] via stretcher at 2231. Able to ambulate from hallway to bed with single point cane with minimal assistance. Admission database completed. Pt on room air currently with SpO2 93% (spot-checking). Lungs with
coarse rhonchi and expiratory wheezing throughout, and pt with moist non-productive cough. Informed pt of need for sputum sample if she is able to produce one. Pt verbalizes that her breathing is better since receiving duo-nebs in the ER. Physical
assessment as documented in nursing shift assessment flowsheet. Repeat lactic sent upon arrival to unit--still >2 at this time. Medicated with PRN Tylenol for c/o slight pain/achiness.
[2025-10-30 06:30] LABS: Hematocrit 38.0 % (37.0-47.0); Hemoglobin 12.8 g/dL (12.0-16.0); Mean Corp Hgb Conc. 33.7 g/dL (33.0-37.0); Mean Corpuscular Volume 90.7 fL (81.0-99.0); Platelet Count 147 10^3/uL (130-400); Red Cell Dist. Width 11.7 % (11.5-14.5)
[2025-10-30 06:32] LABS: ALT (SGPT) 25 U/L (0-35); AST (SGOT) 21 U/L (14-36); Albumin 4.1 g/dl (3.5-5.0); Alkaline Phosphatase 50 U/L (38-126); Blood Urea Nitrogen 13 mg/dl (7-17); Calcium 9.3 mg/dl (8.4-10.2); Carbon Dioxide 27 mmol/L (22-30); Chloride 103 mmol/L (98-107); Estimated Creatinine Clearance 77 ml/min; Glucose 207 mg/dl (70-99); Potassium 4.4 mmol/L (3.5-5.1); Sodium 136 mmol/L (135-145); Total Protein 6.7 g/dl (6.3-8.2); eGFR > 60.00
[2025-10-30 07:30] VITALS: BP 122/69
[2025-10-30] MEDS: DUONEB 3 ML INH ×4 (07:30→20:22)
[2025-10-30] MEDS: VIBRAMYCIN 100 MG PO ×2 (10:03→19:48)
[2025-10-30] MEDS: MUCINEX 600 MG PO ×2 (10:03→19:48)
[2025-10-30] MEDS: DYAZIDE 1 CAPSULE PO (10:03)
[2025-10-30] MEDS: DECADRON 4 MG IV ×2 (10:04→17:28)
--- NOTE | 2025-10-30 11:42 | CM ---
Patient seen bedside w/ spouse, initial assessment completed. Admitted for wheezing in the upper chest, leading to fatigue.
Patient resides w/ spouse in a 4th floor independent living apartment at [facility]. Elevator access. Patient is independent w/ rollator primarily and cane, has RW as well. Independent w/ ADLs. Denies SNF. Home PT through [facility] and OP PT hx
at [facility] this year.
Address, points of contact and insurances verified
PCP: Elvin Huizar
Pharmacy: [facility] at [facility]
PT ordered, will watch for any recommendations
Plan: Await PT
--- NOTE | 2025-10-30 12:13 | W.PN.HOSP.TC ---
Today's Communication/Plan
-
Continue antibiotic-increase Decadron
Assessment / Plan
Assessment / Plan
Impression:
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 She was diagnosed with an upper respiratory tract
infection on Thursday and advised to start antibiotics only if she developed fever or purulent sputum. The morning of admission, she noted new-onset wheezing localized to the upper chest, associated with fatigue. Symptoms began approximately one week
ago, likely around Thursday. She reports that her current MDI albuterol has not provided relief. She denies fever, hemoptysis, and has no history of asthma, emphysema, or COPD. COVID-19 and influenza tests are negative.
Assessment/plan:
Sepsis with acute organ dysfunction
Sepsis secondary to pneumonia
Acute organ dysfunction in form of lactic acidosis
Right-sided pneumonia (presumed CAP) following post-viral URTI
Associated asthmatic bronchitis with bronchospasm
Positive lactate (etiology unclear)
No other evidence of SIRS
Chest pain resolved
Blood cultures/sputum sent
Trend lactate and WBC count' post lactic acid and leukocytosis resolved'
Continue empiric antibiotics: IV ceftriaxone + PO doxycycline
Patient still with wheezing will increase IV Decadron to 4 mg Q8
Continue DuoNeb scheduled QID and PRN
Tylenol for
M�ni�re�s disease
Stable on Dyazide
CODE STATUS: Full code
DVT prophylaxis: Lovenox
Diet: Regular diet
Disposition: Continue antibiotic-increase Decadron
Total time spent on today's encounter was 55 minutes which included time spent in counseling the patient/family regarding diagnosis and treatment plan as listed above, goals of care, and symptom management. Case was discussed with nursing staff,
specialists, and care coordinators/case management. All labs and imaging personally reviewed by me. Remainder the time spent in detailed review of previous records, lab data, imaging, and other medical provider documentation.
Anticipated Discharge: 24 - 48 hours
Subjective/Interval History
-
Date of Service: October 30, 2025
Patient seen and examined at bedside, denies any chest pain , still with shortness of breath and wheezing, no abdominal pain, no nausea, no vomiting, no diarrhea or constipation.
Objective Data
-
Labs:
Laboratory Results
10/30/25
06:08
WBC 9.9
Hgb 12.8
Hct 38.0
Plt Count 147
Sodium 136
Potassium 4.4
Chloride 103
Carbon Dioxide 27
BUN 13
Creatinine 0.5 L
Glucose 207 H
Calcium 9.3
Total Bilirubin 0.5
AST 21
ALT 25
Alkaline Phosphatase 50
Vital Signs:
Vital Signs
Temp Pulse Resp BP Pulse Ox
98.0 F 64 18 122/69 92
10/30/25 07:30 10/30/25 08:31 10/30/25 08:31 10/30/25 07:30 10/30/25 08:31
I&O
10/29/25 10/30/25 10/31/25
06:59 06:59 06:59
Intake Total 1440 / 1440
Output Total 300 / 300
Balance 1140 / 1140
Physical Exam
-
General: Well Developed, Well Nourished, No Apparent Distress and Comfortable
HEENT: Normocephalic, Atraumatic, Moist Mucous Membranes, No Ptosis, PERRLA and Nose Appears Normal
Respiratory: Wheezes, Rales, Rhonchi and Crackles
Cardiac: Regular Rhythm and S1/S2
Breast: Deferred by me
GI: Soft, Nontender, Nondistended and Normal Bowel Sounds
Genito-urinary: No Costovertebral Tender
Musculoskeletal: No Clubbing, No Cyanosis and No Edema
Skin: Warm
Neuro: Awake, Alert, Oriented, AO x 3 and No Motor Deficits
Psych: Calm
Data Reviewed
-
Diagnostic Radiology: Image personally visualized and interpreted and Report Reviewed by me
CT Scan: Image personally visualized and interpreted and Report Reviewed by me
Ultrasound: Image personally visualized and interpreted and Report Reviewed by me
MRI: Image personally visualized and interpreted and Report Reviewed by me
Medical Tests (Nuc Med, Echo etc): Image personally visualized and interpreted and Report Reviewed by me
Labs: Labs Reviewed by me
Old Records: Reviewed
[2025-10-30 13:17] VITALS: BP 118/50; PULSE 84; O2SAT 94
--- NOTE | 2025-10-30 14:39 | PTOTSP ---
PATIENT ADMITTED WITH WHEEZING AND FATIGUE. PATIENT ABLE TO MOBILIZE INDEPENDENTLY WITH/WITHOUT A DEVICE REQUIRING NO FURTHER ACUTE CARE SKILLED P.T. AT THIS TIME. ENCOURAGED PATIENT TO AMBULATE IN ROOM/HALLS. PATIENT AGREEABLE. RN AWARE. WILL
DISCHARGE FROM P.T. SERVICES.
[2025-10-30 15:23] VITALS: BP 118/54
[2025-10-30] MEDS: NSS 1000 IV (15:49)
[2025-10-30] MEDS: STERILE WATER FOR INJECTION 20 ML IV (17:27)
[2025-10-30] MEDS: ROCEPHIN 2000 MG IV (17:27)
[2025-10-30] MEDS: LOVENOX 40 MG SC (17:27)
[2025-10-30] MEDS: NEURONTIN 100 MG PO (22:17)
[2025-10-30] MEDS: AMBIEN 2.5 MG PO (22:18)
[2025-10-30 23:38] VITALS: BP 138/73
[2025-10-31] MEDS: DECADRON 4 MG IV ×3 (01:04→17:22)
[2025-10-31] MEDS: DUONEB 3 ML INH ×6 (01:06→23:27)
[2025-10-31] MEDS: NSS IV (02:34)
[2025-10-31] MEDS: TYLENOL 650 MG PO ×2 (02:35→20:03)
[2025-10-31 07:30] VITALS: BP 121/61
[2025-10-31] MEDS: MUCINEX 600 MG PO ×2 (07:55→20:03)
[2025-10-31] MEDS: DYAZIDE 1 CAPSULE PO (07:55)
[2025-10-31 09:28] LABS: Hematocrit 37.4 % (37.0-47.0); Hemoglobin 12.7 g/dL (12.0-16.0); Mean Corp Hgb Conc. 34.0 g/dL (33.0-37.0); Mean Corpuscular Volume 91.7 fL (81.0-99.0); Platelet Count 173 10^3/uL (130-400); Red Cell Dist. Width 11.7 % (11.5-14.5)
[2025-10-31] MEDS: VIBRAMYCIN PO (09:56)
[2025-10-31 10:29] LABS: Blood Urea Nitrogen 20 mg/dl (7-17); Calcium 9.7 mg/dl (8.4-10.2); Carbon Dioxide 20 mmol/L (22-30); Chloride 101 mmol/L (98-107); Estimated Creatinine Clearance 77 ml/min; Glucose 275 mg/dl (70-99); Potassium 4.0 mmol/L (3.5-5.1); Sodium 133 mmol/L (135-145); eGFR > 60.00
[2025-10-31] MEDS: VIBRAMYCIN 100 MG PO ×2 (10:41→20:03)
--- NOTE | 2025-10-31 11:06 | CON.PUL ---
Consultation
Consultation Request
Date/Time Consultation Requested: 10/31/2025-10:30 AM
Date/Time Consultation Performed: 10/31/2025-11 AM
Requesting Provider: Hospitalist
Performing Provider: Dr. Cisneros
Reason for Consultation: Shortness of breath/pneumonia/COPD
Medical History
-
Chief Complaint: Shortness of breath
History of Present Illness:
80-year-old nonsmoking obese female with a history of hypertension, M�ni�re's disease, without specific history of COPD or asthma presented with URI symptoms treated with antibiotics in the outpatient setting unresponsive and presented with
increasing shortness of breath, felt to have asthma exacerbation-pulmonary was consulted for asthma exacerbation/wheezing 10/31/25. . She is feeling improved but complains of a rash on her chest. This preceded antibiotics. She admits to
significant wheezing and chest tightness. She offers no complaints of current chest pain, pleurisy, hemoptysis, chest congestion, pleurisy, abdominal pain, leg swelling or focal weakness.
Past Medical History
Past Medical History: None (Hypertension. M�ni�re's disease.)
Social History
Tobacco: Non-smoker
Alcohol: None
Drug: None
Living: With Family
Occupational Exposures: No known asbestos exposure
Environmental Exposures: No known tuberculosis exposure
Family History
Family History: Reviewed & Not Pertinent
Allergies / Home Medications
Allergies
Allergy/AdvReac Type Severity Reaction Status Date / Time
clarithromycin (From Biaxin) Allergy Unknown Verified 10/29/25 13:45
erythromycin base Allergy DIARHEA Verified 10/29/25 13:45
moxifloxacin (From Avelox) Allergy DIZZINESS Verified 10/29/25 13:45
Penicillins Allergy Hives Verified 10/29/25 13:45
Home Medications
�Medication �Instructions �Recorded �Confirmed �Last Taken �Type
triamterene 37.5 1 cap PO DAILY Blood Pressure 04/23/25 10/29/25 10/29/25 History
mg-hydrochlorothiazide 25 mg
capsule
zolpidem 5 mg tablet 2.5 mg PO HS Sleep 04/23/25 10/29/25 10/28/25 History
cholecalciferol (vitamin D3) 25 25 mcg PO DAILY Supplement 10/29/25 10/29/25 10/29/25 History
mcg (1,000 unit) tablet (Vitamin
D3)
ciprofloxacin HCl 500 mg tablet 500 mg PO BID Infection 10/29/25 10/29/25 10/29/25 History
diphenhydramine 25 1 tab PO HS Sleep 10/29/25 10/29/25 10/28/25 History
mg-acetaminophen 500 mg tablet
(Acetaminophen PM)
gabapentin 100 mg capsule 100 mg PO HS Neurological Condition 10/29/25 10/29/25 10/28/25 History
Review of Systems
-
Unable to Obtain full review of systems at this time due to: Other ( per HPI)
Vitals / Labs / Diagnostic Testing
Vital Signs
Temp Pulse Resp BP Pulse Ox
98.4 F 62 16 121/61 92
10/31/25 07:30 10/31/25 07:30 10/31/25 07:30 10/31/25 07:30 10/31/25 07:30
Lab Data
10/31/25 09:08
10/31/25 09:08
Microbiology
10/29/25 16:38 Blood/Venous Blood Culture - Preliminary
No Growth in 24 hours- Final report to follow
10/29/25 16:38 Blood/Venous Blood Culture - Preliminary
No Growth in 24 hours- Final report to follow
10/30/25 01:55 Sputum Respiratory Culture - Final
10/30/25 01:55 Sputum Gram Stain - Final
10/30/25 01:43 Urine Legionella Urinary Antigen - Final
Negative for Legionella pneumophila Serogroup 1 antigen.
A negative result does not rule out the possiblity of
Legionella infection due to other serogroups or species of
Legionella. Clinical correlation is recommended.
10/30/25 01:43 Urine Streptococcus pneumoniae Antigen (M - Final
Negative for Streptococcus pneumoniae antigen.
A negative result does not exclude infection with
Streptococcus pneumoniae. Clinical correlation is
recommended.
Diagnostic Testing:
Physical Exam
-
Exam:
Well-nourished well-developed female in no respiratory distress
HEENT-atraumatic, normocephalic, temporal wasting
Neck-supple, no JVD, no bruit
Heart-regular rate and rhythm-no murmurs, rubs or gallops
Back-no tenderness
Abdomen-soft, nontender, nondistended, no hepatosplenomegaly
Extremities-no cyanosis, clubbing, edema and good peripheral pulses
Integument-intact, no rashes, lesions or ecchymosis
Neurology-alert and oriented, nonfocal motor and sensory exam
Assessment
-
80-year-old nonsmoking obese female with a history of hypertension, M�ni�re's disease, without specific history of COPD or asthma presented with URI symptoms treated with antibiotics in the outpatient setting unresponsive and presented with
increasing shortness of breath, felt to have asthma exacerbation-pulmonary was consulted for asthma exacerbation/wheezing 10/31/25.
Community acquired pneumonia
Asthma exacerbation..
Lactic acidosis
Leukocytosis
Mild hyponatremia.
Hyperglycemia
Conditions present prior to admission:
Hypertension.
M�ni�re's disease.
Plan
Acute decompensation likely related to community acquired pneumonia in a patient with previously undetected asthma, now with exacerbation.
Supplemental oxygen as needed.
Home O2 assessment. Prior to discharge.
Aspiration precautions.
Incentive spirometry.
Nebulizers.
Decadron-4 mg IV every 8 hours
Mucus clearing devices..
Monitor rash
Check cultures.
Sputum culture pending.
Urine Legionella and streptococcal antigen negative.
Blood cultures negative.
Empiric antibiotics to cover community acquired pneumonia-ceftriaxone and doxycycline initiated.
Follow leukocytosis.
Monitor blood sugar.
Insulin supplementation as needed.
DVT prophylaxis-on Lovenox.
Nutrition
Early mobilization.
Outpatient pulmonary evaluation
Diagnostic data:
Chest x-ray 10/29/25-right basilar pneumonia.
Chest x-ray 11/10/25-moderate size right middle lobe pneumonia
Echocardiogram 09/25/25-EF 62%, no significant valvular disease
Data Reviewed
-
EKG: Report reviewed by me
Radiology: Report reviewed by me
CT Scan: Report reviewed by me
Medical Tests (Nuc Med, Echo etc): Report reviewed by me
Labs: Labs reviewed by me
Old Records: Reviewed
Total Time Spent with Patient (in minutes): 55
--- NOTE | 2025-10-31 12:13 | W.PN.HOSP.TC ---
Today's Communication/Plan
-
Pulmonology consulted, added Benadryl for itching
Assessment / Plan
Assessment / Plan
Impression:
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 She was diagnosed with an upper respiratory tract
infection on Thursday and advised to start antibiotics only if she developed fever or purulent sputum. The morning of admission, she noted new-onset wheezing localized to the upper chest, associated with fatigue. Symptoms began approximately one week
ago, likely around Thursday. She reports that her current MDI albuterol has not provided relief. She denies fever, hemoptysis, and has no history of asthma, emphysema, or COPD. COVID-19 and influenza tests are negative.
Patient still with significant wheezing, repeat chest x-ray shows:
1. Moderate sized airspace opacity in the right middle lobe. Diagnostic possibilities are (1) right middle lobe pneumonia or (2) atelectasis/scarring (a possibility given mild right lung volume loss).
2. Moderate enlargement of the cardiomediastinal silhouette with tortuosity and possible aneurysmal dilatation of the thoracic aorta.
Pulmonology consulted
Assessment/plan:
Sepsis with acute organ dysfunction
Sepsis secondary to pneumonia
Acute organ dysfunction in form of lactic acidosis
Right-sided pneumonia (presumed CAP) following post-viral URTI
Associated asthmatic bronchitis with bronchospasm
Positive lactate (etiology unclear)
No other evidence of SIRS
Chest pain resolved
Blood cultures/sputum sent
Trend lactate and WBC count' post lactic acid and leukocytosis resolved'
Continue empiric antibiotics: IV ceftriaxone + PO doxycycline
Patient still with wheezing will increase IV Decadron to 4 mg Q8
Continue DuoNeb scheduled QID and PRN
Tylenol for pain
08/04
Patient still with significant wheezing, repeat chest x-ray shows:
1. Moderate sized airspace opacity in the right middle lobe. Diagnostic possibilities are (1) right middle lobe pneumonia or (2) atelectasis/scarring (a possibility given mild right lung volume loss).
2. Moderate enlargement of the cardiomediastinal silhouette with tortuosity and possible aneurysmal dilatation of the thoracic aorta.
Pulmonology consulted
M�ni�re�s disease
Stable on Dyazide
CODE STATUS: Full code
DVT prophylaxis: Lovenox
Diet: Regular diet
Disposition: Pulmonology consulted, added Benadryl for itching
Total time spent on today's encounter was 55 minutes which included time spent in counseling the patient/family regarding diagnosis and treatment plan as listed above, goals of care, and symptom management. Case was discussed with nursing staff,
specialists, and care coordinators/case management. All labs and imaging personally reviewed by me. Remainder the time spent in detailed review of previous records, lab data, imaging, and other medical provider documentation.
Anticipated Discharge: 24 - 48 hours
Subjective/Interval History
-
Date of Service: October 31, 2025
Patient seen and examined at bedside, denies any chest pain , patient remains with shortness of breath and wheezing, no abdominal pain, no nausea, no vomiting, no diarrhea or constipation.
Noted to have rash, started on Benadryl.
Pulmonology consulted.
Objective Data
-
Labs:
Laboratory Results
10/31/25
09:08
WBC 13.6 H
Hgb 12.7
Hct 37.4
Plt Count 173
Sodium 133 L
Potassium 4.0
Chloride 101
Carbon Dioxide 20 L
BUN 20 H
Creatinine 0.6
Glucose 275 H
Calcium 9.7
Vital Signs:
Vital Signs
Temp Pulse Resp BP Pulse Ox
98.4 F 71 16 121/61 92
10/31/25 07:30 10/31/25 11:45 10/31/25 11:45 10/31/25 07:30 10/31/25 11:45
I&O
10/30/25 10/31/25 11/01/25
06:59 06:59 06:59
Intake Total 1440 / 1440 1380 / 1380
Output Total 300 / 300
Balance 1140 / 1140 1380 / 1380
Physical Exam
-
General: Well Developed, Well Nourished, No Apparent Distress and Comfortable
HEENT: Normocephalic, Atraumatic, Moist Mucous Membranes, No Ptosis, PERRLA and Nose Appears Normal
Respiratory: Wheezes, Rales, Rhonchi and Crackles
Cardiac: Regular Rhythm and S1/S2
Breast: Deferred by me
GI: Soft, Nontender, Nondistended and Normal Bowel Sounds
Genito-urinary: No Costovertebral Tender
Musculoskeletal: No Clubbing, No Cyanosis and No Edema
Skin: Warm
Neuro: Awake, Alert, Oriented, AO x 3 and No Motor Deficits
Psych: Calm
[2025-10-31 15:30] VITALS: BP 138/73
[2025-10-31] MEDS: STERILE WATER FOR INJECTION 20 ML IV (17:20)
[2025-10-31] MEDS: ROCEPHIN 2000 MG IV (17:20)
[2025-10-31] MEDS: LOVENOX 40 MG SC (17:23)
[2025-10-31] MEDS: BENADRYL 25 MG PO (20:03)
[2025-10-31] MEDS: COLACE 100 MG PO (20:03)
[2025-10-31] MEDS: NEURONTIN 100 MG PO (22:21)
[2025-10-31] MEDS: AMBIEN 2.5 MG PO (22:21)
[2025-10-31 23:24] VITALS: BP 164/81
[2025-11-01] MEDS: DECADRON 4 MG IV ×3 (01:36→17:09)
[2025-11-01] MEDS: TYLENOL 650 MG PO ×3 (01:36→22:18)
[2025-11-01 01:43] VITALS: BP 131/74
[2025-11-01] MEDS: BENADRYL 25 MG PO ×2 (02:04→19:52)
[2025-11-01 07:00] VITALS: BP 137/72
[2025-11-01] MEDS: DYAZIDE 1 CAPSULE PO (07:49)
[2025-11-01] MEDS: COLACE 100 MG PO ×2 (07:49→19:52)
[2025-11-01] MEDS: VIBRAMYCIN 100 MG PO ×2 (07:51→19:52)
[2025-11-01] MEDS: MUCINEX 600 MG PO ×2 (07:51→19:52)
[2025-11-01] MEDS: MIRALAX 17 GRAMS PO (08:14)
[2025-11-01] MEDS: PROTONIX 40 MG PO (08:14)
[2025-11-01] MEDS: DUONEB 3 ML INH ×4 (08:32→20:06)
[2025-11-01 08:49] LABS: Hematocrit 36.9 % (37.0-47.0); Hemoglobin 12.7 g/dL (12.0-16.0); Mean Corp Hgb Conc. 34.4 g/dL (33.0-37.0); Mean Corpuscular Volume 90.9 fL (81.0-99.0); Platelet Count 183 10^3/uL (130-400); Red Cell Dist. Width 11.6 % (11.5-14.5)
[2025-11-01 09:26] LABS: Blood Urea Nitrogen 22 mg/dl (7-17); Calcium 9.8 mg/dl (8.4-10.2); Carbon Dioxide 22 mmol/L (22-30); Chloride 101 mmol/L (98-107); Estimated Creatinine Clearance 77 ml/min; Glucose 219 mg/dl (70-99); Potassium 4.6 mmol/L (3.5-5.1); Sodium 133 mmol/L (135-145); eGFR > 60.00
[2025-11-01] MEDS: LASIX 20 MG IV (09:44)
--- NOTE | 2025-11-01 10:54 | W.PN.PUL.V3 ---
Today's Communication / Plan
-
Wean oxygen.
Trial of diuresis.
No change in Decadron.
Continue nebulizers
Assessment
-
80-year-old nonsmoking obese female with a history of hypertension, M�ni�re's disease, without specific history of COPD or asthma presented with URI symptoms treated with antibiotics in the outpatient setting unresponsive and presented with
increasing shortness of breath, felt to have asthma exacerbation-pulmonary was consulted for asthma exacerbation/wheezing 10/31/25.
Community acquired pneumonia
Asthma exacerbation..
Lactic acidosis
Leukocytosis
Mild hyponatremia.
Hyperglycemia
Conditions present prior to admission:
Hypertension.
M�ni�re's disease.
Plan
Acute decompensation likely related to community acquired pneumonia in a patient with previously undetected asthma, now with exacerbation.
.
Respiratory status improving-slightly less wheezing
Supplemental oxygen as needed.
Home O2 assessment prior to discharge.
Aspiration precautions.
Incentive spirometry.
Nebulizers- Duo nebs continue
Decadron-4 mg IV every 8 hours -likely will be able to reduce in the next 24 hours
Mucus clearing devices
Bedside spirometry
Monitor rash-no progression
Cultures reviewed
Sputum culture unrevealing, no WBCs.
Urine Legionella and streptococcal antigen negative.
Blood cultures negative.
Empiric antibiotics to cover community acquired pneumonia-ceftriaxone and doxycycline initiated-finite course
Follow leukocytosis..
Trial of gentle diuresis
Monitor blood sugar.
Insulin supplementation as needed.
DVT prophylaxis-on Lovenox.
Nutrition
Early mobilization.
Outpatient pulmonary evaluation
Diagnostic data:
Chest x-ray 10/29/25-right basilar pneumonia.
Chest x-ray 11/10/25-moderate size right middle lobe pneumonia
Echocardiogram 09/25/25-EF 62%, no significant valvular disease
Subjective Data
-
Date of Service:
Date of Service: November 01, 2025
Chief Complaint: Pulmonary Follow Up and Dyspnea Follow Up
Subjective:
. No complaints of worsening shortness of breath, chest pain or abdominal pain
Review of Systems
General: Other ( per HPI)
Objective Data
Data Reviewed
Vital Signs / I&O:
Vital Signs
Temp Pulse Resp BP Pulse Ox
97.5 F 77 16 137/72 93
11/01/25 07:00 11/01/25 08:32 11/01/25 08:32 11/01/25 07:00 11/01/25 08:32
Intake and Output
10/31/25 11/01/25 11/02/25
06:59 06:59 06:59
Intake Total 1380 / 1380 1140 / 1140
Balance 1380 / 1380 1140 / 1140
SaO2: 93
Physical Exam
General: Respiratory Distress (n) and Comfortable
HEENT: Normocephalic, Anicteric and Moist Mucous Membranes
Cardiovascular: Regular Rhythm
Respiratory: Wheeze ( expiratory), Crackles (n), Rhonchi (n), Non-Labored Respirations, Accessory Resp Muscle Use (n) and Stridor
GI: Soft, Non Distended and Non Tender
Neurology: Awake, Alert and No Motor Deficits
Skin: Warm, Good Color, Cyanosis (n), Jaundice (n) and Rash (n)
Labs/Micro/Reports
Lab Data
11/01/25 06:43
11/01/25 06:43
Microbiology
10/29/25 16:38 Blood/Venous Blood Culture - Preliminary
No Growth in 48 hours- Final report to follow
10/29/25 16:38 Blood/Venous Blood Culture - Preliminary
No Growth in 48 hours- Final report to follow
10/30/25 01:55 Sputum Respiratory Culture - Final
10/30/25 01:55 Sputum Gram Stain - Final
10/30/25 01:43 Urine Legionella Urinary Antigen - Final
Negative for Legionella pneumophila Serogroup 1 antigen.
A negative result does not rule out the possiblity of
Legionella infection due to other serogroups or species of
Legionella. Clinical correlation is recommended.
10/30/25 01:43 Urine Streptococcus pneumoniae Antigen (M - Final
Negative for Streptococcus pneumoniae antigen.
A negative result does not exclude infection with
Streptococcus pneumoniae. Clinical correlation is
recommended.
--- NOTE | 2025-11-01 12:53 | CM ---
Chart reviewed. On room air
Pulmonology consulted
PT- no skilled needs identified
Plan: Home, no needs when stable
--- NOTE | 2025-11-01 13:17 | W.PN.HOSP.TC ---
Today's Communication/Plan
-
Trial of Lasix
Continue IV Solu-Medrol
Assessment / Plan
Assessment / Plan
Impression:
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 She was diagnosed with an upper respiratory tract
infection on Thursday and advised to start antibiotics only if she developed fever or purulent sputum. The morning of admission, she noted new-onset wheezing localized to the upper chest, associated with fatigue. Symptoms began approximately one week
ago, likely around Thursday. She reports that her current MDI albuterol has not provided relief. She denies fever, hemoptysis, and has no history of asthma, emphysema, or COPD. COVID-19 and influenza tests are negative.
Patient still with significant wheezing, repeat chest x-ray shows:
1. Moderate sized airspace opacity in the right middle lobe. Diagnostic possibilities are (1) right middle lobe pneumonia or (2) atelectasis/scarring (a possibility given mild right lung volume loss).
2. Moderate enlargement of the cardiomediastinal silhouette with tortuosity and possible aneurysmal dilatation of the thoracic aorta.
Pulmonology consulted
Assessment/plan:
Sepsis with acute organ dysfunction
Sepsis secondary to pneumonia
Acute organ dysfunction in form of lactic acidosis
Right-sided pneumonia (presumed CAP) following post-viral URTI
Associated asthmatic bronchitis with bronchospasm
Positive lactate (etiology unclear)
No other evidence of SIRS
Chest pain resolved
Blood cultures/sputum sent
Trend lactate and WBC count' post lactic acid and leukocytosis resolved'
Continue empiric antibiotics: IV ceftriaxone + PO doxycycline
Patient still with wheezing will increase IV Decadron to 4 mg Q8
Continue DuoNeb scheduled QID and PRN
Tylenol for pain
10/31
Patient still with significant wheezing, repeat chest x-ray shows:
1. Moderate sized airspace opacity in the right middle lobe. Diagnostic possibilities are (1) right middle lobe pneumonia or (2) atelectasis/scarring (a possibility given mild right lung volume loss).
2. Moderate enlargement of the cardiomediastinal silhouette with tortuosity and possible aneurysmal dilatation of the thoracic aorta.
Pulmonology consulted
11/01
Overall wheezing and shortness of breath improved.
Trial of 1 dose of Lasix.
Patient has no history of congestive heart failure.
Most recent echo showed:
1. Normal biventricular size and systolic function without regional wall motion abnormality. LVEF 62%.
2. Mild concentric LVH.
3. No significant valvular disease.
4. No change compared to prior echocardiogram in 2021.
M�ni�re�s disease
Stable on Dyazide
CODE STATUS: Full code
DVT prophylaxis: Lovenox
Diet: Regular diet
Disposition: Trial of Lasix
Continue IV Solu-Medrol
Total time spent on today's encounter was 55 minutes which included time spent in counseling the patient/family regarding diagnosis and treatment plan as listed above, goals of care, and symptom management. Case was discussed with nursing staff,
specialists, and care coordinators/case management. All labs and imaging personally reviewed by me. Remainder the time spent in detailed review of previous records, lab data, imaging, and other medical provider documentation.
Anticipated Discharge: 24 - 48 hours
Subjective/Interval History
-
Date of Service: November 01, 2025
Patient seen and examined at bedside, denies any chest pain , shortness of breath and wheezing slightly improved, no abdominal pain, no nausea, no vomiting, no diarrhea or constipation.
Will give 1 dose of Lasix.
Objective Data
-
Labs:
Laboratory Results
11/01/25
06:43
WBC 11.9 H
Hgb 12.7
Hct 36.9 L
Plt Count 183
Sodium 133 L
Potassium 4.6
Chloride 101
Carbon Dioxide 22
BUN 22 H
Creatinine 0.6
Glucose 219 H
Calcium 9.8
Vital Signs:
Vital Signs
Temp Pulse Resp BP Pulse Ox
97.5 F 78 16 137/72 93
11/01/25 07:00 11/01/25 11:30 11/01/25 11:30 11/01/25 07:00 11/01/25 10:54
I&O
10/31/25 11/01/25 11/02/25
06:59 06:59 06:59
Intake Total 1380 / 1380 1140 / 1140
Balance 1380 / 1380 1140 / 1140
Physical Exam
-
General: Well Developed, Well Nourished, No Apparent Distress and Comfortable
HEENT: Normocephalic, Atraumatic, Moist Mucous Membranes, No Ptosis, PERRLA and Nose Appears Normal
Respiratory: Wheezes, Rales, Rhonchi and Crackles
Cardiac: Regular Rhythm and S1/S2
Breast: Deferred by me
GI: Soft, Nontender, Nondistended and Normal Bowel Sounds
Genito-urinary: No Costovertebral Tender
Musculoskeletal: No Clubbing, No Cyanosis and No Edema
Skin: Warm
Neuro: Awake, Alert, Oriented, AO x 3 and No Motor Deficits
Psych: Calm
[2025-11-01 15:25] VITALS: BP 139/64
[2025-11-01] MEDS: ROCEPHIN 2000 MG IV (16:26)
[2025-11-01] MEDS: STERILE WATER FOR INJECTION 20 ML IV (16:26)
[2025-11-01] MEDS: LOVENOX 40 MG SC (17:08)
[2025-11-01] MEDS: AMBIEN 2.5 MG PO (22:18)
[2025-11-01] MEDS: NEURONTIN 100 MG PO (22:18)
[2025-11-01 23:41] VITALS: BP 138/69
[2025-11-02] MEDS: DECADRON 4 MG IV ×3 (02:21→17:00)
[2025-11-02] MEDS: TYLENOL 650 MG PO ×2 (02:21→19:32)
[2025-11-02 07:00] VITALS: BP 129/69
[2025-11-02 07:09] LABS: Hematocrit 37.5 % (37.0-47.0); Hemoglobin 13.1 g/dL (12.0-16.0); Mean Corp Hgb Conc. 34.9 g/dL (33.0-37.0); Mean Corpuscular Volume 89.7 fL (81.0-99.0); Platelet Count 194 10^3/uL (130-400); Red Cell Dist. Width 11.3 % (11.5-14.5)
[2025-11-02 07:37] LABS: Blood Urea Nitrogen 29 mg/dl (7-17); Calcium 10.2 mg/dl (8.4-10.2); Carbon Dioxide 24 mmol/L (22-30); Chloride 99 mmol/L (98-107); Estimated Creatinine Clearance 66 ml/min; Glucose 222 mg/dl (70-99); Potassium 4.9 mmol/L (3.5-5.1); Sodium 133 mmol/L (135-145); eGFR > 60.00
[2025-11-02] MEDS: DUONEB 3 ML INH ×3 (07:48→19:08)
[2025-11-02] MEDS: DYAZIDE 1 CAPSULE PO (08:49)
[2025-11-02] MEDS: VIBRAMYCIN 100 MG PO ×2 (08:49→19:33)
[2025-11-02] MEDS: MIRALAX 17 GRAMS PO (08:49)
[2025-11-02] MEDS: MUCINEX 600 MG PO ×2 (08:49→19:33)
[2025-11-02] MEDS: PROTONIX 40 MG PO (08:49)
[2025-11-02] MEDS: COLACE 100 MG PO ×2 (08:52→19:33)
--- NOTE | 2025-11-02 10:39 | W.PN.PUL.V3 ---
Today's Communication / Plan
-
Wean oxygen.
Increased activity.
CT chest noted-repeat in 6 months.
No change in Decadron-hope to change to prednisone in the next 24 hours.
Finite course of antibiotics
Assessment
-
80-year-old nonsmoking obese female with a history of hypertension, M�ni�re's disease, without specific history of COPD or asthma presented with URI symptoms treated with antibiotics in the outpatient setting unresponsive and presented with
increasing shortness of breath, felt to have asthma exacerbation-pulmonary was consulted for asthma exacerbation/wheezing 10/31/25.
Community acquired pneumonia
Asthma exacerbation..
Lactic acidosis
Leukocytosis
Mild hyponatremia.
Hyperglycemia
Conditions present prior to admission:
Hypertension.
M�ni�re's disease.
Plan
Acute decompensation likely related to community acquired pneumonia in a patient with previously undetected asthma, now with exacerbation.
.
Respiratory status improving-slightly less wheezing
Supplemental oxygen as needed.
Home O2 assessment prior to discharge.
Aspiration precautions.
Incentive spirometry.
Nebulizers- Duo nebs continue
Decadron-4 mg IV every 8 hours -likely will be able to reduce in the next 24 hours
Mucus clearing devices
Bedside spirometry 11/01/25-FEV1 1.28 L-70%, FVC 1.85 L, 77%, significant BD response. Mild obstruction.
CT chest 11/02/2571-[id number] tree-in-bud opacifications basilar right lower lobe, 6 mm rounded subpleural nodule lateral left lower lobe.
Monitor rash-no progression
Cultures reviewed
Sputum culture unrevealing, no WBCs.
Urine Legionella and streptococcal antigen negative.
Blood cultures negative.
Empiric antibiotics to cover community acquired pneumonia-ceftriaxone and doxycycline initiated-finite course
Follow leukocytosis..
Trial of gentle diuresis
Monitor blood sugar.
Insulin supplementation as needed.
DVT prophylaxis-on Lovenox.
Nutrition
Early mobilization.
Outpatient pulmonary evaluation-Including PFTs, , possible allergy testing, CT chest in 6 months to follow-up on nodules
Diagnostic data:
Chest x-ray 10/29/25-right basilar pneumonia.
Chest x-ray 11/10/25-moderate size right middle lobe pneumonia
Echocardiogram 09/25/25-EF 62%, no significant valvular disease
Subjective Data
-
Date of Service:
Date of Service: November 02, 2025
Chief Complaint: Pulmonary Follow Up and Dyspnea Follow Up
Subjective:
Feels better, still with some wheezing, rash improved, no chest pain or abdominal pain
Review of Systems
General: Other ( per HPI)
Objective Data
Data Reviewed
Vital Signs / I&O:
Vital Signs
Temp Pulse Resp BP Pulse Ox
97.5 F 82 18 129/69 99
11/02/25 07:00 11/02/25 08:49 11/02/25 07:52 11/02/25 08:49 11/02/25 07:52
Intake and Output
11/01/25 11/02/25 11/03/25
06:59 06:59 06:59
Intake Total 1140 / 1140 1680 / 1680
Balance 1140 / 1140 1680 / 1680
SaO2: 99
Physical Exam
General: Respiratory Distress (n) and Comfortable
HEENT: Normocephalic, Anicteric and Moist Mucous Membranes
Cardiovascular: Regular Rhythm
Respiratory: Wheeze ( expiratory), Crackles (n), Rhonchi (n), Non-Labored Respirations, Accessory Resp Muscle Use (n) and Stridor
GI: Soft, Non Distended and Non Tender
Neurology: Awake, Alert and No Motor Deficits
Skin: Warm, Good Color, Cyanosis (n), Jaundice (n) and Rash (n)
Labs/Micro/Reports
Lab Data
11/02/25 06:31
11/02/25 06:31
Microbiology
10/29/25 16:38 Blood/Venous Blood Culture - Preliminary
No Growth in 72 hours- Final report to follow
10/29/25 16:38 Blood/Venous Blood Culture - Preliminary
No Growth in 72 hours- Final report to follow
10/30/25 01:55 Sputum Respiratory Culture - Final
10/30/25 01:55 Sputum Gram Stain - Final
10/30/25 01:43 Urine Legionella Urinary Antigen - Final
Negative for Legionella pneumophila Serogroup 1 antigen.
A negative result does not rule out the possiblity of
Legionella infection due to other serogroups or species of
Legionella. Clinical correlation is recommended.
10/30/25 01:43 Urine Streptococcus pneumoniae Antigen (M - Final
Negative for Streptococcus pneumoniae antigen.
A negative result does not exclude infection with
Streptococcus pneumoniae. Clinical correlation is
recommended.
--- NOTE | 2025-11-02 11:03 | W.PN.HOSP.TC ---
Today's Communication/Plan
-
Added Mucomyst
Will obtain CT chest
Assessment / Plan
Assessment / Plan
Impression:
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 She was diagnosed with an upper respiratory tract
infection on Thursday and advised to start antibiotics only if she developed fever or purulent sputum. The morning of admission, she noted new-onset wheezing localized to the upper chest, associated with fatigue. Symptoms began approximately one week
ago, likely around Thursday. She reports that her current MDI albuterol has not provided relief. She denies fever, hemoptysis, and has no history of asthma, emphysema, or COPD. COVID-19 and influenza tests are negative.
Patient still with significant wheezing, repeat chest x-ray shows:
1. Moderate sized airspace opacity in the right middle lobe. Diagnostic possibilities are (1) right middle lobe pneumonia or (2) atelectasis/scarring (a possibility given mild right lung volume loss).
2. Moderate enlargement of the cardiomediastinal silhouette with tortuosity and possible aneurysmal dilatation of the thoracic aorta.
Pulmonology consulted
Wheezing slowly improving, received 1 dose of Lasix.
Added Mucomyst
Assessment/plan:
Sepsis with acute organ dysfunction
Sepsis secondary to pneumonia
Acute organ dysfunction in form of lactic acidosis
Right-sided pneumonia (presumed CAP) following post-viral URTI
Associated asthmatic bronchitis with bronchospasm
Positive lactate (etiology unclear)
No other evidence of SIRS
Chest pain resolved
Blood cultures/sputum sent
Trend lactate and WBC count' post lactic acid and leukocytosis resolved'
Continue empiric antibiotics: IV ceftriaxone + PO doxycycline
Patient still with wheezing will increase IV Decadron to 4 mg Q8
Continue DuoNeb scheduled QID and PRN
Tylenol for pain
10/31
Patient still with significant wheezing, repeat chest x-ray shows:
1. Moderate sized airspace opacity in the right middle lobe. Diagnostic possibilities are (1) right middle lobe pneumonia or (2) atelectasis/scarring (a possibility given mild right lung volume loss).
2. Moderate enlargement of the cardiomediastinal silhouette with tortuosity and possible aneurysmal dilatation of the thoracic aorta.
Pulmonology consulted
11/01
Overall wheezing and shortness of breath improved.
Trial of 1 dose of Lasix.
Patient has no history of congestive heart failure.
Most recent echo showed:
1. Normal biventricular size and systolic function without regional wall motion abnormality. LVEF 62%.
2. Mild concentric LVH.
3. No significant valvular disease.
4. No change compared to prior echocardiogram in 2021.
11/02
Wheezing slowly improving, received 1 dose of Lasix.
Added Mucomyst
Will obtain CT chest
M�ni�re�s disease
Stable on Dyazide
CODE STATUS: Full code
DVT prophylaxis: Lovenox
Diet: Regular diet
Disposition:Added Mucomyst
Will obtain CT chest
Total time spent on today's encounter was 55 minutes which included time spent in counseling the patient/family regarding diagnosis and treatment plan as listed above, goals of care, and symptom management. Case was discussed with nursing staff,
specialists, and care coordinators/case management. All labs and imaging personally reviewed by me. Remainder the time spent in detailed review of previous records, lab data, imaging, and other medical provider documentation.
Anticipated Discharge: 24 - 48 hours
Subjective/Interval History
-
Date of Service: November 02, 2025
Patient seen and examined at bedside, denies any chest pain , shortness of breath and wheezing improved, no abdominal pain, no nausea, no vomiting, no diarrhea or constipation.
Will give 1 dose Mucomyst.
Objective Data
-
Labs:
Laboratory Results
11/02/25
06:31
WBC 11.2 H
Hgb 13.1
Hct 37.5
Plt Count 194
Sodium 133 L
Potassium 4.9
Chloride 99
Carbon Dioxide 24
BUN 29 H
Creatinine 0.7
Glucose 222 H
Calcium 10.2
Vital Signs:
Vital Signs
Temp Pulse Resp BP Pulse Ox
97.5 F 82 18 129/69 99
11/02/25 07:00 11/02/25 08:49 11/02/25 07:52 11/02/25 08:49 11/02/25 10:39
I&O
11/01/25 11/02/25 11/03/25
06:59 06:59 06:59
Intake Total 1140 / 1140 1680 / 1680
Balance 1140 / 1140 1680 / 1680
Physical Exam
-
General: Well Developed, Well Nourished, No Apparent Distress and Comfortable
HEENT: Normocephalic, Atraumatic, Moist Mucous Membranes, No Ptosis, PERRLA and Nose Appears Normal
Respiratory: Wheezes, Rales, Rhonchi and Crackles
Cardiac: Regular Rhythm and S1/S2
Breast: Deferred by me
GI: Soft, Nontender, Nondistended and Normal Bowel Sounds
Genito-urinary: No Costovertebral Tender
Musculoskeletal: No Clubbing, No Cyanosis and No Edema
Skin: Warm
Neuro: Awake, Alert, Oriented, AO x 3 and No Motor Deficits
Psych: Calm
[2025-11-02] MEDS: MUCOMYST 20% 2 ML INH (11:15)
[2025-11-02] MEDS: VENTOLIN NEBULES 2.5 MG INH (11:15)
[2025-11-02] MEDS: DUONEB INH (11:40)
[2025-11-02 15:00] VITALS: BP 135/65
[2025-11-02] MEDS: STERILE WATER FOR INJECTION 20 ML IV (16:54)
[2025-11-02] MEDS: ROCEPHIN 2000 MG IV (16:54)
[2025-11-02] MEDS: LOVENOX 40 MG SC (17:00)
[2025-11-02] MEDS: BENADRYL 25 MG PO (17:03)
[2025-11-02] MEDS: AMBIEN 2.5 MG PO (22:02)
[2025-11-02] MEDS: NEURONTIN 100 MG PO (22:02)
[2025-11-02 23:18] VITALS: BP 138/79
[2025-11-03] MEDS: TYLENOL 650 MG PO (01:55)
[2025-11-03] MEDS: DECADRON 4 MG IV ×2 (01:55→09:44)
[2025-11-03] MEDS: BENADRYL 25 MG PO (01:55)
[2025-11-03 07:16] VITALS: BP 128/72
[2025-11-03] MEDS: MIRALAX 17 GRAMS PO (07:30)
[2025-11-03] MEDS: VIBRAMYCIN 100 MG PO (07:30)
[2025-11-03] MEDS: MUCINEX 600 MG PO (07:30)
[2025-11-03] MEDS: COLACE 100 MG PO (07:30)
[2025-11-03] MEDS: DYAZIDE 1 CAPSULE PO (07:30)
[2025-11-03] MEDS: PROTONIX 40 MG PO (07:30)
[2025-11-03 09:02] LABS: Hematocrit 40.6 % (37.0-47.0); Hemoglobin 14.6 g/dL (12.0-16.0); Mean Corp Hgb Conc. 36.0 g/dL (33.0-37.0); Mean Corpuscular Volume 86.8 fL (81.0-99.0); Platelet Count 256 10^3/uL (130-400); Red Cell Dist. Width 11.2 % (11.5-14.5)
[2025-11-03 09:31] LABS: Blood Urea Nitrogen 33 mg/dl (7-17); Calcium 10.3 mg/dl (8.4-10.2); Carbon Dioxide 22 mmol/L (22-30); Chloride 96 mmol/L (98-107); Estimated Creatinine Clearance 77 ml/min; Glucose 216 mg/dl (70-99); Potassium 4.8 mmol/L (3.5-5.1); Sodium 130 mmol/L (135-145); eGFR > 60.00
--- NOTE | 2025-11-03 10:23 | W.PN.PUL.V3 ---
Today's Communication / Plan
-
Wean oxygen
Increase activity
Change Decadron to prednisone with slow taper
Home nebulizers
Respiratory status improved-pulmonary will sign off-please call with questions
Assessment
-
80-year-old nonsmoking obese female with a history of hypertension, M�ni�re's disease, without specific history of COPD or asthma presented with URI symptoms treated with antibiotics in the outpatient setting unresponsive and presented with
increasing shortness of breath, felt to have asthma exacerbation-pulmonary was consulted for asthma exacerbation/wheezing 10/31/25.
Community acquired pneumonia
Asthma exacerbation..
Lactic acidosis
Leukocytosis
Mild hyponatremia.
Hyperglycemia
Conditions present prior to admission:
Hypertension.
M�ni�re's disease.
Plan
Acute decompensation likely related to community acquired pneumonia in a patient with previously undetected asthma, now with exacerbation.
Respiratory status improving-less wheezing
Supplemental oxygen as needed.
Home O2 assessment prior to discharge
Aspiration precautions.
Incentive spirometry.
Nebulizers- Duo nebs continue
Change Decadron to prednisone 50 mg daily
Mucus clearing devices
Bedside spirometry 11/01/25-FEV1 1.28 L-70%, FVC 1.85 L, 77%, significant BD response. Mild obstruction.
CT chest 11/02/2581-[id number] tree-in-bud opacifications basilar right lower lobe, 6 mm rounded subpleural nodule lateral left lower lobe.
Monitor rash-no progression
Cultures reviewed
Sputum culture unrevealing, no WBCs.
Urine Legionella and streptococcal antigen negative.
Blood cultures negative.
Empiric antibiotics to cover community acquired pneumonia-ceftriaxone and doxycycline initiated-finite course
Follow leukocytosis..
Trial of gentle diuresis
Monitor blood sugar.
Insulin supplementation as needed.
DVT prophylaxis-on Lovenox.
Nutrition
Early mobilization.
Respiratory status improved-eventually discharged on prednisone 50 mg daily for 3 days, then 40 mg daily for 3 days then 30 mg daily for 3 days and then 20 mg daily for 3 days then 10 mg daily for 3 days and then discontinue
Discharge on home nebulizer
Eventual inhalers-can be decided in the outpatient setting-we have samples, insurance covers select inhalers, etc.
Outpatient pulmonary evaluation-Including PFTs, , possible allergy testing, CT chest in 6 months to follow-up on nodules
Diagnostic data:
Chest x-ray 10/29/25-right basilar pneumonia.
Chest x-ray 11/10/25-moderate size right middle lobe pneumonia
Echocardiogram 09/25/25-EF 62%, no significant valvular disease
Subjective Data
-
Date of Service:
Date of Service: November 03, 2025
Chief Complaint: Pulmonary Follow Up and Dyspnea Follow Up
Subjective:
Feels better, minimal wheezing improved, no chest pain or abdominal pain
Review of Systems
General: Other ( per HPI)
Objective Data
Data Reviewed
Vital Signs / I&O:
Vital Signs
Temp Pulse Resp BP Pulse Ox
97.4 F 57 16 128/72 92
11/03/25 07:16 11/03/25 07:16 11/03/25 07:16 11/03/25 07:16 11/03/25 07:16
Intake and Output
11/02/25 11/03/25 11/04/25
06:59 06:59 06:59
Intake Total 1680 / 1680 1800 / 1800
Balance 1680 / 1680 1800 / 1800
SaO2: 92
Physical Exam
General: Respiratory Distress (n) and Comfortable
HEENT: Normocephalic, Anicteric and Moist Mucous Membranes
Cardiovascular: Regular Rhythm
Respiratory: Wheeze ( expiratory), Crackles (n), Rhonchi (n), Non-Labored Respirations, Accessory Resp Muscle Use (n) and Stridor
GI: Soft, Non Distended and Non Tender
Neurology: Awake, Alert and No Motor Deficits
Skin: Warm, Good Color, Cyanosis (n), Jaundice (n) and Rash (n)
Labs/Micro/Reports
Lab Data
11/03/25 08:29
11/03/25 08:29
Microbiology
10/29/25 16:38 Blood/Venous Blood Culture - Preliminary
No Growth in 4 days- Final report to follow
10/29/25 16:38 Blood/Venous Blood Culture - Preliminary
No Growth in 4 days- Final report to follow
--- NOTE | 2025-11-03 11:44 | W.PN.HOSP.TC ---
Today's Communication/Plan
-
Discharge home today
Assessment / Plan
Assessment / Plan
Impression:
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 She was diagnosed with an upper respiratory tract
infection on Thursday and advised to start antibiotics only if she developed fever or purulent sputum. The morning of admission, she noted new-onset wheezing localized to the upper chest, associated with fatigue. Symptoms began approximately one week
ago, likely around Thursday. She reports that her current MDI albuterol has not provided relief. She denies fever, hemoptysis, and has no history of asthma, emphysema, or COPD. COVID-19 and influenza tests are negative.
Patient still with significant wheezing, repeat chest x-ray shows:
1. Moderate sized airspace opacity in the right middle lobe. Diagnostic possibilities are (1) right middle lobe pneumonia or (2) atelectasis/scarring (a possibility given mild right lung volume loss).
2. Moderate enlargement of the cardiomediastinal silhouette with tortuosity and possible aneurysmal dilatation of the thoracic aorta.
Pulmonology consulted
Wheezing slowly improving, received 1 dose of Lasix.
Added Mucomyst
Overall improving, CT scan done showed
1. Ill-defined tree-in-bud opacities within the basilar right lower lobe suggestive of bronchiolitis, likely infectious or inflammatory nature. There are also couple of small ill-defined ground glass opacities within the right upper lobe, also
likely infectious versus inflammatory.
2. 6 mm rounded subpleural nodule within the lateral left lower lobe. Based upon the above guidelines, follow-up CT recommended in 6-12 months.
3. Additional findings above.
Will be discharged home today to continue on antibiotic, prednisone tapering, nebulizer treatment
Assessment/plan:
Sepsis with acute organ dysfunction
Sepsis secondary to pneumonia
Acute organ dysfunction in form of lactic acidosis
Right-sided pneumonia (presumed CAP) following post-viral URTI
Associated asthmatic bronchitis with bronchospasm
Positive lactate (etiology unclear)
No other evidence of SIRS
Chest pain resolved
Blood cultures/sputum sent
Trend lactate and WBC count' post lactic acid and leukocytosis resolved'
Continue empiric antibiotics: IV ceftriaxone + PO doxycycline
Patient still with wheezing will increase IV Decadron to 4 mg Q8
Continue DuoNeb scheduled QID and PRN
Tylenol for pain
10/31
Patient still with significant wheezing, repeat chest x-ray shows:
1. Moderate sized airspace opacity in the right middle lobe. Diagnostic possibilities are (1) right middle lobe pneumonia or (2) atelectasis/scarring (a possibility given mild right lung volume loss).
2. Moderate enlargement of the cardiomediastinal silhouette with tortuosity and possible aneurysmal dilatation of the thoracic aorta.
Pulmonology consulted
11/01
Overall wheezing and shortness of breath improved.
Trial of 1 dose of Lasix.
Patient has no history of congestive heart failure.
Most recent echo showed:
1. Normal biventricular size and systolic function without regional wall motion abnormality. LVEF 62%.
2. Mild concentric LVH.
3. No significant valvular disease.
4. No change compared to prior echocardiogram in 2021.
11/02
Wheezing slowly improving, received 1 dose of Lasix.
Added Mucomyst
Will obtain CT chest
11/03
Overall improving, CT scan done showed
1. Ill-defined tree-in-bud opacities within the basilar right lower lobe suggestive of bronchiolitis, likely infectious or inflammatory nature. There are also couple of small ill-defined ground glass opacities within the right upper lobe, also
likely infectious versus inflammatory.
2. 6 mm rounded subpleural nodule within the lateral left lower lobe. Based upon the above guidelines, follow-up CT recommended in 6-12 months.
3. Additional findings above.
Will be discharged home today to continue on antibiotic, prednisone tapering, nebulizer treatment
M�ni�re�s disease
Stable on Dyazide
CODE STATUS: Full code
DVT prophylaxis: Lovenox
Diet: Regular diet
Disposition: Discharge home today
Total time spent on today's encounter was 55 minutes which included time spent in counseling the patient/family regarding diagnosis and treatment plan as listed above, goals of care, and symptom management. Case was discussed with nursing staff,
specialists, and care coordinators/case management. All labs and imaging personally reviewed by me. Remainder the time spent in detailed review of previous records, lab data, imaging, and other medical provider documentation.
Anticipated Discharge: Today
Subjective/Interval History
-
Date of Service: November 03, 2025
Patient seen and examined at bedside, denies any chest pain , shortness of breath and wheezing improved, no abdominal pain, no nausea, no vomiting, no diarrhea or constipation.
Objective Data
-
Labs:
Laboratory Results
11/03/25
08:29
WBC 13.2 H
Hgb 14.6
Hct 40.6
Plt Count 256 D
Sodium 130 L
Potassium 4.8
Chloride 96 L
Carbon Dioxide 22
BUN 33 H
Creatinine 0.6
Glucose 216 H
Calcium 10.3 H
Vital Signs:
Vital Signs
Temp Pulse Resp BP Pulse Ox
97.4 F 57 16 128/72 92
11/03/25 07:16 11/03/25 07:16 11/03/25 07:16 11/03/25 07:16 11/03/25 10:23
I&O
11/02/25 11/03/25 11/04/25
06:59 06:59 06:59
Intake Total 1680 / 1680 1800 / 1800
Balance 1680 / 1680 1800 / 1800
Physical Exam
-
General: Well Developed, Well Nourished, No Apparent Distress and Comfortable
HEENT: Normocephalic, Atraumatic, Moist Mucous Membranes, No Ptosis, PERRLA and Nose Appears Normal
Respiratory: Wheezes, Rales, Rhonchi and Crackles
Cardiac: Regular Rhythm and S1/S2
Breast: Deferred by me
GI: Soft, Nontender, Nondistended and Normal Bowel Sounds
Genito-urinary: No Costovertebral Tender
Musculoskeletal: No Clubbing, No Cyanosis and No Edema
Skin: Warm
Neuro: Awake, Alert, Oriented, AO x 3 and No Motor Deficits
Psych: Calm
--- NOTE | 2025-11-03 11:54 | W.DCSUMMARY ---
Discharge Summary
Discharge Data
Date of Admission: 10/29/25
Date of Discharge: 11/03/25
Total time spent discharging patient (in min): 40
-
Pending Results: No
Hospital Course
Hospital course
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 She was diagnosed with an upper respiratory tract
infection on Thursday and advised to start antibiotics only if she developed fever or purulent sputum. The morning of admission, she noted new-onset wheezing localized to the upper chest, associated with fatigue. Symptoms began approximately one week
ago, likely around Thursday. She reports that her current MDI albuterol has not provided relief. She denies fever, hemoptysis, and has no history of asthma, emphysema, or COPD. COVID-19 and influenza tests are negative.
Patient still with significant wheezing, repeat chest x-ray shows:
1. Moderate sized airspace opacity in the right middle lobe. Diagnostic possibilities are (1) right middle lobe pneumonia or (2) atelectasis/scarring (a possibility given mild right lung volume loss).
2. Moderate enlargement of the cardiomediastinal silhouette with tortuosity and possible aneurysmal dilatation of the thoracic aorta.
Pulmonology consulted
Wheezing slowly improving, received 1 dose of Lasix.
Added Mucomyst
Overall improving, CT scan done showed
1. Ill-defined tree-in-bud opacities within the basilar right lower lobe suggestive of bronchiolitis, likely infectious or inflammatory nature. There are also couple of small ill-defined ground glass opacities within the right upper lobe, also
likely infectious versus inflammatory.
2. 6 mm rounded subpleural nodule within the lateral left lower lobe. Based upon the above guidelines, follow-up CT recommended in 6-12 months.
3. Additional findings above.
Will be discharged home today to continue on antibiotic, prednisone tapering, nebulizer treatment
During hospitalization patient was treated from the following
Sepsis with acute organ dysfunction
Sepsis secondary to pneumonia
Acute organ dysfunction in form of lactic acidosis
Right-sided pneumonia (presumed CAP) following post-viral URTI
Associated asthmatic bronchitis with bronchospasm
Positive lactate (etiology unclear)
No other evidence of SIRS
Chest pain resolved
Blood cultures/sputum sent
Trend lactate and WBC count' post lactic acid and leukocytosis resolved'
Continue empiric antibiotics: IV ceftriaxone + PO doxycycline
Patient still with wheezing will increase IV Decadron to 4 mg Q8
Continue DuoNeb scheduled QID and PRN
Tylenol for pain
10/31
Patient still with significant wheezing, repeat chest x-ray shows:
1. Moderate sized airspace opacity in the right middle lobe. Diagnostic possibilities are (1) right middle lobe pneumonia or (2) atelectasis/scarring (a possibility given mild right lung volume loss).
2. Moderate enlargement of the cardiomediastinal silhouette with tortuosity and possible aneurysmal dilatation of the thoracic aorta.
Pulmonology consulted
11/01
Overall wheezing and shortness of breath improved.
Trial of 1 dose of Lasix.
Patient has no history of congestive heart failure.
Most recent echo showed:
1. Normal biventricular size and systolic function without regional wall motion abnormality. LVEF 62%.
2. Mild concentric LVH.
3. No significant valvular disease.
4. No change compared to prior echocardiogram in 2021.
11/02
Wheezing slowly improving, received 1 dose of Lasix.
Added Mucomyst
Will obtain CT chest
11/03
Overall improving, CT scan done showed
1. Ill-defined tree-in-bud opacities within the basilar right lower lobe suggestive of bronchiolitis, likely infectious or inflammatory nature. There are also couple of small ill-defined ground glass opacities within the right upper lobe, also
likely infectious versus inflammatory.
2. 6 mm rounded subpleural nodule within the lateral left lower lobe. Based upon the above guidelines, follow-up CT recommended in 6-12 months.
3. Additional findings above.
Will be discharged home today to continue on antibiotic, prednisone tapering, nebulizer treatment
M�ni�re�s disease
Stable on Dyazide
CODE STATUS: Full code
DVT prophylaxis: Lovenox
Diet: Regular diet
Disposition: Discharge home today
Total time spent on today's encounter was 40 minutes which included time spent in counseling the patient/family regarding diagnosis and treatment plan as listed above, goals of care, and symptom management. Case was discussed with nursing staff,
specialists, and care coordinators/case management. All labs and imaging personally reviewed by me. Remainder the time spent in detailed review of previous records, lab data, imaging, and other medical provider documentation.
Anticipated Discharge: Today
Discharge Plan
-
Patient Disposition: Home (Routine Discharge)
Discharge Diagnosis/Procedures: Sepsis with acute organ dysfunction
Sepsis secondary to pneumonia
Acute organ dysfunction in form of lactic acidosis
Right-sided pneumonia (presumed CAP) following post-viral URTI
Diet: Low Cholesterol
Activity: As tolerated
Referrals:
Elvin Huizar MD [Family Provider, Internal Medicine]
Villa Cisneros MD [Active, Pulmonary Medicine] - in one to two weeks
Referral Note: Asthma exacerbation
Prescriptions:
New
prednisone 10 mg tablet
See Taper PO DAILY Qty: 30 0RF
Taper: Prednisone DC Starting at 40 mg daily
40 mg Daily for 3 Days
30 mg Daily for 3 Days
20 mg Daily for 3 Days
10 mg Daily for 3 Days
ipratropium-albuterol 0.5 mg-3 mg(2.5 mg base)/3 mL Solution For Nebulization
3 ml inhalation R Q4HPRN PRN (Reason: wheezing/shortness of breath) Qty: 180 0RF
guaifenesin 600 mg Tablet Extended Release 12hr
600 mg PO Q12 Qty: 20 0RF
doxycycline hyclate 100 mg Capsule
100 mg PO Q12 5 Days Qty: 10 0RF
pantoprazole 40 mg Tablet,Delayed Release (Dr/Ec)
40 mg PO DAILY 14 Days Qty: 14 0RF
cefdinir 300 mg capsule
300 mg PO BID Qty: 10 0RF
(DME) nebulizers Misc
See Rx Instructions .Route Qty: 1 0RF
Rx Instructions:
As directed
Continued
triamterene-hydrochlorothiazid 37.5-25 mg Capsule
1 cap PO DAILY
zolpidem 5 mg Tablet
2.5 mg PO HS
gabapentin 100 mg Capsule
100 mg PO HS
diphenhydramine-acetaminophen [Acetaminophen PM] 25-500 mg Tablet
1 tab PO HS
cholecalciferol (vitamin D3) [Vitamin D3] 25 mcg (1,000 unit) Tablet
25 mcg PO DAILY
Discontinued
ciprofloxacin HCl 500 mg Tablet
500 mg PO BID
Rx Instructions:
FOR 5 DAYS STARTING 10/27/25
Discharge Orders:
Discharge Patient (As Directed); Ordered 11/03/25
Ordered By: Serge Reddy
Discharge Date and Time
Print Language: WOLOF
[2025-11-03] MEDS: STERILE WATER FOR INJECTION 20 ML IV (12:51)
[2025-11-03] MEDS: ROCEPHIN 2000 MG IV (12:52)
--- NOTE | 2025-11-03 12:55 | CM ---
Chart reviewed. Patient will discharge home today
Met w/ patient bedside, aware of discharge. Offered home health, patient declined
IMM verbally reviewed, copy provided, copy on chart
Spouse will transport
Plan: Home, no needs
[2025-11-03 13:29] VITALS: BP 147/70
== END 2025-11-03 14:06 | disposition home or self-care (01) | DRG 871 ==
LOC: 4 WEST ACU 17:57
PROVIDERS: ADMITTING PHYSICIAN Internal Medicine; ATTENDING PHYSICIAN General Practice; CONSULT PHYSICIAN Internal Medicine Critical Care Medicine; EMERGENCY PHYSICIAN Emergency Medicine; FAMILY PHYSICIAN Student in an Organized Health Care Education/Training Program
DX: A41.9 Sepsis, unspecified organism (principal); J18.9 Pneumonia, unspecified organism; J45.901 Unspecified asthma with (acute) exacerbation; E87.20 Acidosis, unspecified; E87.1 Hypo-osmolality and hyponatremia; J44.0 Chronic obstructive pulmonary disease with (acute) lower respiratory infection; J44.1 Chronic obstructive pulmonary disease with (acute) exacerbation; R65.20 Severe sepsis without septic shock; I10 Essential (primary) hypertension; Z88.0 Allergy status to penicillin; E66.9 Obesity, unspecified; Z68.35 Body mass index [BMI] 35.0-35.9, adult; R09.02 Hypoxemia
CPT/HCPCS: 71046; 71250; 80048; 80053; 83605; 84484; 85025; 85027; 87040; 87205; 87449; 87899; 93005; 94640; 96374; 97162; 99285